=== PATIENT | female | born 1940 | race Caucasian/White ===

== ENCOUNTER 2021-04-08 18:05 | Emergency (ER) | payer MEDICARE, SELFPAY ==
--- NOTE | 2021-04-08 18:10 | ED.FEMALEGU ---
HPI - Female Genitourinary General Chief complaint: Urogenital-Female Stated complaint: Dizziness, Shaking, frequent urinating Time Seen by Provider: 04/08/21 18:08 Source: patient and RN notes reviewed History of Present Illness HPI Narrative: Patient is an 80-year-old female who presents the urgent care with complaints of frequent urination, burning with urination, urgency, dizziness and shakiness . Patient states that her symptoms of the urinary issues started approximately a week and a half ago and the last 2 to 3 days she has been shaky and dizzy . Patient states she does have a history of vertigo and has not taken anything for her symptoms. Patient also reports of some nausea without abdominal pain, vomiting or diarrhea. Patient denies of any recent falls. States that she has been eating and drinking normally. No other acute complaints. No acute distress noted. Patient aware of the plan of care. Some parts of this dictation were generated by voice recognition software and may contain typographical and/or grammatical inaccuracies. Related Data Home Medications Medication Instructions Recorded Confirmed acetazolamide 500 mg PO BID 04/08/21 04/08/21 alprazolam 0.5 mg PO BID PRN 04/08/21 04/08/21 atorvastatin 20 mg PO DAILY 04/08/21 04/08/21 brimonidine 1 drp RIGHT EYE BID 04/08/21 04/08/21 diltiazem HCl 240 mg PO DAILY 04/08/21 04/08/21 dorzolamide 1 drp RIGHT EYE BID 04/08/21 04/08/21 ergocalciferol (vitamin D2) 1,250 mcg PO MONTHLY 04/08/21 04/08/21 famotidine 20 mg PO DAILY 04/08/21 04/08/21 fluoxetine 10 mg PO DAILY 04/08/21 04/08/21 hydrocodone-acetaminophen 1 tablet PO Q6H PRN 04/08/21 04/08/21 latanoprost 1 drp EACH EYE HS 04/08/21 04/08/21 levothyroxine 88 mcg PO DAILY 04/08/21 04/08/21 lisinopril 40 mg PO DAILY 04/08/21 04/08/21 Allergies Allergy/AdvReac Type Severity Reaction Status Date / Time No Known Allergies Allergy Verified 04/08/21 18:47 Review of Systems Review of Systems: CONSTITUTIONAL: Denies fever, chills, or sweats. EYES: Denies visual changes, redness, or discharge. ENT: Denies rhinorrhea, congestion, sore throat, or otalgia. CARDIOVASCULAR: Denies chest pain, palpitations, or edema. RESPIRATORY: Denies cough or dyspnea. GASTROINTESTINAL: Denies abdominal pain, nausea, vomiting, or diarrhea. GENITOURINARY: Reports of dysuria, urgency or frequency SKIN: Denies rash or itching. MUSCULOSKELETAL: Denies back pain, joint pain, or myalgia. NEUROLOGIC: Denies headache, numbness, or weakness. Reports of dizziness All other systems reviewed are negative, except as documented in HPI. [facility] Social History Social History Smoking status: Never smoker Alcohol intake: never Comments At the time of my signature, I reviewed and agree with the nursing past medical, surgical, social, and family history. There is no relevant family history pertinent to the patient complaint. Exam Narrative: GENERAL: This is a well-nourished, well-developed patient, in no apparent distress. HEAD: normocephalic, atraumatic. EYES: PERRL. Sclera clear/white. Vision is grossly intact. EARS: External ears normal, auditory canals clear and without drainage, TMs normal without perforation. Hearing grossly intact. NOSE: External nose normal with no obvious nasal discharge, nares without redness, no rhinorrhea. THROAT: Mucous membranes moist, posterior pharynx clear. NECK: Neck supple, non-tender without lymphadenopathy, masses or thyromegaly. CARDIOVASCULAR: Regular rate and rhythm- paced RESPIRATORY: Clear to auscultation. Breath sounds equal bilaterally. No wheezes, rales, or rhonchi. GASTROINTESTINAL: Abdomen soft, non-tender, nondistended. Bowel sounds are active. SKIN: warm, intact with no suspicious lesions or rash, good texture and turgor. NEURO: awake, alert, and oriented to person, place and time. There were no obvious focal neurologic abnormalities. EXTREMITIES: No clubbing, cyanosis, or edema. Course Vital
[2021-04-08 18:21] VITALS: BP 163/70; PULSE 60; RESP 16; TEMP 37.1; O2SAT 97
[2021-04-08 18:39] LABS: Glucose Point of Care 99 mg/dl (65-105)
== END 2021-04-08 18:51 | disposition left against medical advice (07) ==
PROVIDERS: Emergency Provider Nurse Practitioner Family; PCP Hospitalist
DX: N39.0 Urinary tract infection, site not specified (principal)
CPT/HCPCS: 81003; 82948; 87086; 87088; 99213; G0463

== ENCOUNTER 2022-05-19 12:30 | Emergency (ER) | payer MEDICARE, SELFPAY ==
--- NOTE | ~2022-05-19 | XR_ITS ---
EXAMINATION: XR tibia fibula LT 2V DATE: 05/19/2022 13:19 INDICATION: Severe left leg pain post fall TECHNIQUE: Anteroposterior and lateral views of the left tibia and fibula were obtained. COMPARISON: Left knee radiographs dated 05/19/2017 FINDINGS: Left total knee arthroplasty without patellar resurfacing which appears well seated in near-anatomic alignment. No periprosthetic lucency to suggest loosening or infection. There appears be some seconda ry remodeling of the patella suggesting extensive patellar high-grade chondromalacia. No fracture. Mo derate osteoarthritis at the tarsal metatarsal joints and mild osteoarthritis at the left ankle and a few additional joints in the mid and hindfoot. Moderate-sized plantar calcaneal spur. Soft tissues a re unremarkable. No left knee joint effusion. IMPRESSION: 1. No acute osseous abnormality. 2. Left total knee arthroplasty without patellar resurfacing with suggestion of high-grade patellar c hondromalacia with remodeling of the patella. Reviewed, dictated and finalized at location A. IMPRESSION: 1. No acute osseous abnormality. 2. Left total knee arthroplasty without patellar resurfacing with suggestion of high-grade patellar chondromalacia with remodeling of the patella.
--- NOTE | ~2022-05-19 | XR_ITS ---
EXAMINATION: XR wrist LT min 3V DATE: 05/19/2022 13:19 INDICATION: Left wrist pain post fall TECHNIQUE: Posteroanterior, ulnar deviation, oblique, and lateral views of the left wrist were obtain ed. COMPARISON: none FINDINGS: Oblique fracture at the distal metadiaphysis of the left ulna with 2-3 mm ulnar displacement and mild volar angulation. No other fractures identified. Polyarticular osteoarthritis, severe at the triscap he, first carpometacarpal, first metacarpophalangeal and first interphalangeal joints. Moderate osteo arthritis at the wrist, second and third metacarpophalangeal and fifth proximal interphalangeal joint s and mild at the midcarpal and remaining metacarpophalangeal and visualized interphalangeal joints. Chronic calcinosis in the region of the triangular fibrocartilage complex. Soft tissue swelling along the ulnar side of the mid to distal forearm. IMPRESSION: 1. Mild ulnar displacement and angulation of an oblique mid diaphyseal fracture of the distal left ul na. 2. Moderate to severe polyarticular osteoarthritis at the left wrist and hand. Reviewed, dictated and finalized at location A. IMPRESSION: 1. Mild ulnar displacement and angulation of an oblique mid diaphyseal fracture of the distal left ulna. 2. Moderate to severe polyarticular osteoarthritis at the left wrist and hand.
[2022-05-19 12:34] VITALS: BP 120/63; PULSE 61; RESP 16; TEMP 37; O2SAT 97
--- NOTE | 2022-05-19 13:02 | ED.GENADULT ---
HPI - General Adult General Chief complaint: Extremity Injury, Lower Stated complaint: Left Wrist Injury Source: patient Mode of arrival: ambulatory Limitations: no limitations History of Present Illness HPI narrative: Patient presents for evaluation of left wrist pain. She indicates she sustained a fall 3 days ago. She was with her son and was attempting to sit on a rocker at the time of the fall. Apparently her son accidentally bumped the rocker causing it to spin, resulting in patient missing the chair. She did not hit her head. No LOC. She is anticoagulated with eliquis for atrial fibrillation. She reports pain in her left wrist since the time of the fall. She rates her pain 10/10 in severity. Pain is worse with movement. She is right hand dominant. She also has some bruising to posterior aspect of left lower leg. She has been using a cane to ambulate. Baseline status is ambulatory without assistive device. Related Data Home Medications Medication Instructions Recorded Confirmed acetazolamide 500 mg 500 mg PO BID 04/08/21 05/19/22 capsule,extended release alprazolam 0.5 mg tablet 0.5 mg PO BID PRN Anxiety 04/08/21 05/19/22 atorvastatin 20 mg tablet 20 mg PO DAILY 04/08/21 05/19/22 brimonidine 0.2 % eye drops 1 drp RIGHT EYE BID 04/08/21 05/19/22 diltiazem HCl 240 mg 240 mg PO DAILY 04/08/21 05/19/22 capsule,extended release 24 hr dorzolamide 2 % eye drops 1 drp RIGHT EYE BID 04/08/21 05/19/22 ergocalciferol (vitamin D2) 1,250 1,250 mcg PO MONTHLY 04/08/21 05/19/22 mcg (50,000 unit) capsule famotidine 20 mg tablet 20 mg PO DAILY 04/08/21 05/19/22 fluoxetine 10 mg capsule 10 mg PO DAILY 04/08/21 05/19/22 hydrocodone 7.5 mg-acetaminophen 1 tablet PO Q6H PRN Pain 04/08/21 05/19/22 325 mg tablet latanoprost 0.005 % eye drops 1 drp EACH EYE HS 04/08/21 05/19/22 levothyroxine 88 mcg tablet 88 mcg PO DAILY 04/08/21 05/19/22 lisinopril 40 mg tablet 40 mg PO DAILY 04/08/21 05/19/22 Allergies Allergy/AdvReac Type Severity Reaction Status Date / Time No Known Allergies Allergy Verified 05/19/22 12:49 Review of Systems Review of Systems: CONSTITUTIONAL: Denies fever, chills, or sweats. EYES: Denies visual changes, redness, or discharge. ENT: Denies rhinorrhea, congestion, sore throat, or otalgia. CARDIOVASCULAR: Denies chest pain, palpitations, or edema. RESPIRATORY: Denies cough or dyspnea. GASTROINTESTINAL: Denies abdominal pain, nausea, vomiting, or diarrhea. GENITOURINARY: Denies dysuria or hematuria. SKIN: Reports bruising to posterior aspect of left lower leg. Denies rash or itching. MUSCULOSKELETAL: Reports left wrist pain NEUROLOGIC: Denies headache, numbness, dizziness, or weakness. PSYCHIATRIC: Denies anxiety or depression. [facility] Past Medical History Medical History (Updated 05/19/22 @ 14:15 by RAHEEL BassP, ) Atrial fibrillation Hypertension Hypothyroidism Surgical History Surgical History History of left knee replacement History of right knee joint replacement Family History Family History Mother Family history non-contributory Social History Social History Smoking status: Never smoker Alcohol intake: never Substance use: never Living arrangements: alone Gender identity (if verbalized by the patient): Female Spiritual care concerns: No Exam Narrative: GENERAL: Well-appearing, well-nourished, and in no acute distress. HEAD: Normocephalic, atraumatic. EYES: PERRLA and EOMI. ENT: Nares clear, no rhinorrhea or epistaxis. Mucous membranes moist. Oropharynx without tonsillar hypertrophy exudate or other lesions. Bilateral TMs pearly artis nonbulging NECK: Supple. No adenopathy or masses. No carotid bruits or JVD CHEST: Clear to auscultation. No respiratory distress. No wheezes ra
== END 2022-05-19 14:35 | disposition home or self-care (01) ==
PROVIDERS: Emergency Provider Nurse Practitioner; PCP Hospitalist
DX: S52.602A Unspecified fracture of lower end of left ulna, initial encounter for closed fracture (principal); W19.XXXA Unspecified fall, initial encounter; I48.91 Unspecified atrial fibrillation; Z79.01 Long term (current) use of anticoagulants; I10 Essential (primary) hypertension; E03.9 Hypothyroidism, unspecified; Z96.653 Presence of artificial knee joint, bilateral
CPT/HCPCS: 29125; 73110; 73590; 99214; A4565; G0463

== ENCOUNTER 2024-07-07 10:57 | Outpatient (CLI) | payer MEDICARE, SELFPAY | END 2024-07-07 10:58 | disposition home or self-care (01) | LOC: ANHBWCAUD 10:58 | PROVIDERS: PCP Hospitalist; Visit Provider Otolaryngology | DX: H90.2 Conductive hearing loss, unspecified (principal); H74.02 Tympanosclerosis, left ear | CPT/HCPCS: 92557; 92567 ==

== ENCOUNTER 2025-06-25 15:41 | Emergency (ER) | payer MEDICARE, SELFPAY ==
--- NOTE | ~2025-06-25 | XR_ITS ---
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 Findings: No acute fracture or malalignment. No significant degenerative changes. Soft tissues unremarkable. Impression: No acute fracture or malalignment. Reviewed, dictated and finalized at location P. MOBILE MECHANIC RADIATOR Impression: No acute fracture or malalignment.
--- OUTSIDE RECORDS SUMMARY | 2025-06-25 15:43 | XMS_ITS | Clinical Summary ---
Author Organization [facility] Address [address] [place] [address] Phone Care Team Providers Care Production Aide Name Role Phone Jose Leon MD Primary Care Provider [phone] Allergies Active Allergy Reactions Criticality Noted Date Comments Atorvastatin Other (see Comments) Low 06/19/2020 Reaction: muscle pain Codeine Unknown Dorzolamide Hcl-Timolol Mal Other (see Comments) Low 07/15/2024 Gabapentin Other (see Comments) Medium 10/25/2022 Patient does not remember but will not take it again Atorvastatin Calcium Other (see Comments) Reaction: muscle pain Oxycodone Other (see Comments) Low 10/25/2023 Lethargy, low blood pressure. Tolerated hydrocodone without issue. Pravastatin Other (see Comments) Low 06/19/2020 Reaction: muscle pain Reaction: muscle pain Prednisone Other (see Comments) Medium 04/18/2022 Simvastatin Other (see Comments) Low 06/19/2020 Reaction: muscle pain Reaction: muscle pain Medications Eliquis 5 MG Tablet TAKE ONE TABLET BY MOUTH TWO TIMES A DAY 60 Tab 5 06/16/20 20 Active lisinopril (PRINIVIL, ZESTRIL) 20 MG Tablet TAKE ONE TABLET BY MOUTH TWO TIMES A DAY 180 Tab 07/04/20 20 Active ergocalciferol (VITAMIN D) 73768 UNIT Capsule 1 CAPSULE BY MOUTH ONCE A MONTH 1 Cap 1 08/17/19 21 Active hydrALAZINE 25 MG Tablet TAKE 1 TAB BY MOUTH 2 TIMES DAILY. 60 Tab 2 08/29/19 21 Active levothyroxine (SYNTHROID) 75 MCG Tablet TAKE ONE TABLET BY MOUTH DAILY 90 Tab 1 08/29/19 21 Active ALPRAZolam (XANAX) 0.5 MG Tablet TAKE 1 TAB BY MOUTH 2 TIMES DAILY NEEDED FOR ANXIETY. 60 Tab 09/05/19 21 Active Additional Information Patient not taking.Reported on 10/03/2022 meclizine (ANTIVERT) 25 MG Tablet Take 25 mg by mouth 3 times daily as needed for Dizziness. 09/26/19 23 Active naloxone HCl (Narcan) 4 MG/0.1ML Liquid 1 [place] by Nasal route as needed (opioid overdose). administer for symptoms of overdose (severe sleepiness, breathing problems, not responsive). Call 911. May use additional dose to repeat 1 spray intranasally in 2-3 minutes if needed. 2 Each 10/04/19 23 Active HYDROcodone-acetam inophen (NORCO) 7.5-325 MG TabletIndications: Spinal stenosis, unspecified spinal region TAKE ONE (1) TABLET BY MOUTH EVERY 8 HOURS NEEDED FOR MODERATE OR MORE SEVERE PAIN. 90 Tablet 11/05/19 23 Active levothyroxine (SYNTHROID) 100 MCG TabletIndications: Other specified hypothyroidism TAKE 1 TABLET BY MOUTH DAILY. 90 Tablet 3 02/09/20 24 Active dilTIAZem (DILACOR XR) 240 MG CAPSULE SR 24 HR Take 240 mg by mouth daily. Active DULoxetine (CYMBALTA) [address] Particles Take 20 mg by mouth 2 times daily. Active famotidine (PEPCID) 20 MG Tablet Take 20 mg by mouth every evening. Active HYDROcodone-acetam inophen (NORCO) 10-325 MG Tablet Take 1 Tablet by mouth every 6 hours as needed for Mild or more severe pain. Active latanoprost (XALATAN) 0.005 % Solution Place 1 Drop in left eye nightly. Active levothyroxine (SYNTHROID) 125 MCG Tablet Take 125 mcg by mouth daily. Active linaclotide (Linzess) 145 MCG Capsule Take 145 mcg by mouth every morning (before breakfast). Active lisinopril (PRINIVIL, ZESTRIL) 20 MG Tablet Take 20 mg by mouth daily. 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 Active ezetimibe (ZETIA) 10 MG Tablet Take 10 mg by mouth daily. Active propranolol (INDERAL) 20 MG Tablet Take 20 mg by mouth 2 times daily. Active Active Problems Problem Noted Date Diagnosed Date Spinal stenosis 10/03/2022 Overview (10/03/2022): Has seen pain mgment Essential hypertension, benign 05/04/2020 Paroxysmal atrial fibrillation 05/04/2020 Overview (10/03/2022): Chohaun pacemaker Other specified hypothyroidism 05/04/2020 Generalized anxiety disorder 05/04/2020 Generalized osteoarthritis 05/04/2020 Primary osteoarthritis of left knee 09/17/2018 Hyperlipidemia 12/11/2010 Diverticulosis large intesti ne w/o perforation or abscess w/o bleeding 12/11/2010 Encounters Date Type Department Care Team Description 05/04/2025 10:00 AM CDT Home Care Visit [address] [address] Lillian Diaz, PT PT - OASIS DISCHARGE 05/03/2025 Telephone [facility] [address] [place] [address] dAam Cortez MD 05/02/2025 4:00 PM CDT Home Care Visit [address] [address] Mariana Godwin, SERVER PT - HOME VISIT 05/02/2025 Telephone [facility] [address] [place] [address] Adam Cortez MD 05/02/2025 Travel 04/28/2025 1:15 PM CDT Home Care Visit [address] [address] Monique Caruso, OT OT - DISCIPLINE DISCHARGE 04/27/2025 10:30 AM CDT Home Care Visit [address] [address] Mariana Godwin, SERVER PT - HOME VISIT 04/27/2025 Home Care Visit [address] [address] Emma Carpenter, LES CASE COMMUNICATION 04/27/2025 Travel 04/26/2025 11:00 AM CDT Home Care Visit [address] [address] Emma Carpenter, LES OT - HOME VISIT 04/25/2025 12:30 PM CDT Home Care Visit [address] [address] Mariana Godwin, SERVER PT - HOME VISIT 04/25/2025 Travel 04/21/2025 11:30 AM CDT Home Care Visit [address] [address] Mariana Godwin, SERVER PT - HOME VISIT 04/21/2025 11:00 AM CDT Home Care Visit [address] [address] Emma Carpenter, LES OT - HOME VISIT 04/21/2025 Travel 04/19/2025 12:30 PM CDT Home Care Visit [address] [address] Emma Carpenter, LES OT - HOME VISIT 04/19/2025 10:00 AM CDT Home Care Visit [address] [address] Samaria Jesus, PT PT - SERVER SUPERVISORY VISIT 04/19/2025 Travel 04/14/2025 11:00 AM CDT Home Care Visit [address] [address] Emma Carpenter OTA OT - HOME VISIT 04/13/2025 11:30 AM CDT Home Care Visit [address] [address] Mariana Godwin, SERVER PT - HOME VISIT 04/13/2025 Travel 04/11/2025 1:30 PM CDT Home Care Visit [address] [address] Monique Caruso OT OT - INITIAL EVALUATION 04/11/2025 12:00 PM CDT Home Care Visit [address] [address] Mariana Godwin, SERVER PT - HOME VISIT 04/11/2025 Travel 04/08/2025 Home Care Visit [address] [address] Lillian Diaz, PT CARE CONFERENCE 04/07/2025 9:30 AM CDT Home Care Visit [address] [address] Lillian Diaz, PT PT - [place] START OF CARE 04/07/[address] [address] Lillian Diaz, PT Medication Management 04/07/2025 Plan of Care Documentation [address] [address] from Last 3 Months Immunizations Immunization Administration Dates Next Due Pneumococcal Vaccine Adult - 23 Valent 2 TDAP Vaccine 09/25/2023 Family History Medical History Relation Name Comments Heart Attack Father Stroke Mother No Known Problems Sister Relation Name Status Comments Father Mother Sister Alive Social History Tobacco Use Types Packs/Day Years Used Date Smoking Tobacco: Never Smokeless Tobacco: Never Tobacco Cessation:Counseling Given: No Alcohol Use Standard Drinks/Week Comments Never 0 (1 standard drink = 0.6 oz pur e alcohol) PHQ-2 Answer Date Recorded Total Score - Questions 1-9 1 09/2022 AUDIT-C Answer Date Recorded Q1: How often do you have a drink containing alcohol? Never 05/03/2025 Q2: How many drinks containi ng alcohol do you have on a typical day when you are drinking? Patient does not drink Q3: How often do you have si x or more drinks on one occasion? Never 05/03/2025 Sexually Active Control Partners Comments Not Currently Comments No Sex and Gender Information Value Date Recorded Sex Assigned at Not on file Legal Sex Female 8:03 PM CDT Gender Identity Not on file Sexual Orientation Not on file Last Filed Vital Signs Vital Sign Reading Time Taken Comments Blood Pressure 124/72 05/04/2025 10:20 AM CDT Pulse 72 05/04/2025 10:20 AM CDT Temperature 36.1 C (96.9 F) 05/04/2025 10:20 AM CDT Respiratory Rate 16 05/04/2025 10:20 AM CDT Oxygen Saturation 94% 05/04/2025 10:20 AM CDT Inhaled Oxygen Concentration - - Weight 54.4 kg (120 lb) 04/07/2025 9:42 AM CDT Height 152.4 cm (5') 04/07/2025 9:42 AM CDT Body Mass Index 23.44 04/07/2025 9:42 AM CDT Plan of Treatment Health Maintenance Due Date Last Done Comments Hepatitis C Virus (HCV) Screening 1940 Varicella Immunization (1 of 2 - 13+ 2-dose series) 1953 Zoster Immunization (1 of 2) 1990 Medicare Initial AWV G0438 11/02/2000 Pneumococcal Immunization (5 0+ years) (2 of 2 - PCV) 12/10/2012 12/11/2011 Respiratory Syncytial Virus (RSV) Immunization (Adult) (1 - 1-dose 75+ series) 2015 DEXA Bone Density 12/10/2024 12/10/2022, 09/22/2020 Influenza Immunization (#1) 2025 SARS-COV-2 Immunization ( - season) 2025 Pneumococcal Immunization Combined Discontinued 12/11/2011 DTaP/Tdap/Td Immunization Discontinued 09/25/2023 TdaP Immunization Discontinued 09/25/2023 Hepatitis B Immunization Aged Out No longer eligible based on patient's age to complete this topic Human Papillomavirus (HPV) Immunization Aged Out No longer eligible based on patient's age to complete this topic Meningococcal Immunization (ACWY) Aged Out No longer eligible based on patient's age to complete this topic Rotavirus Immunization Aged Out No lo nger eligible based on patient's age to complete this topic Medical Devices Implanted Type Area Account Review Specialist Device Identifier Shelf Expiration Date Model / Serial / Lot Cement Bone Orthoset 1 40gm - [id number] Implanted:Qty : 2 on 09/17/2018 by James Steele MD at [facility] IMPLANT Left: Knee [employer] 10/01/2020 [id number] / [id number] / [id number] Component Patellar High Dome 9mm 28mm Recessed Advance All Poly - [id number] Implanted:Qty : 1 on 09/17/2018 by James Steele MD at [facility] IMPLANT Left: Knee [employer] 06/13/2025 [id number] / [id number] / [id number] Insert Evolution Mp Fem Cs/Cr Porous - [id number] Implanted:Qty : 1 on 09/17/2018 by James Steele MD at [facility] IMPLANT Left: Knee [employer] 05/19/2026 [id number] / [id number] / [id number] Insert Evolution Mp Tib Keeled Nonpor Size 4 Standard Left - [id number] Implanted:Qty : 1 on 09/17/2018 by James Steele MD at [facility] IMPLANT Left: Knee [employer] 03/16/2026 [id number] / [id number] / [id number] Evolution Mp Cs 4 Plus Left Implanted:Qty : 1 on 09/17/2018 by James Steele MD at [facility] Left: Knee [employer] 01/09/2026 [id number] / [id number] / [id number] Insurance [place] Advance Directives Documents on File Type Date Recorded Patient Track Grinder Expl anation Power of Architectural Sales Consultant for Health Care 09/21/2018 8:46 AM POA-HC * Full Code (Latest Code Status on File) Date Activated Date Inactivated Comments 04/07/2025 11:04 PM * Full Code Date Activated Date Inactivated Comments 09/17/2018 3:20 PM 09/19/2018 4:35 PM CPR-Full Faraz atment: FULL ARREST: Attempt Resuscitation/CPR wit intubation and mechanical ventilation. PRE-ARREST: Use entire range of life support measures to stabilize the patient. Care Teams Production Aide Relationship Specialty Start Date End Date Jose Leon MD [address] [place] [address] PCP - General Family Medicine 04/05/25
--- OUTSIDE RECORDS SUMMARY | 2025-06-25 15:43 | XMS_ITS | Encounter Summary ---
Author Organization [facility] Address [address] [place] [address] Phone Care Team Providers Care Filter Operator Name Role Phone Logan Jay MD Primary Care Provider Jose Leon MD Primary Care Provider [phone] Noreen Youssef [facility] Primary Care Pro vider Logan aJy MD Primary Care Provider [phone] Jose Leon MD Primary Care Provider [phone] Reason for Visit * Reason Comments Medication Refill Encounter Details Date Type Department Care Team (Late st Contact Info) Description 07/25/[address] [facility] - Internal Medicine - [place] [address] [place] [address] Logan Jay MD [address] [place] [address] Medication Refill Social History Tobacco Use Types Packs/Day Years Used Date Smoking Tobacco: Never Smokeless Tobacco: Never Alcohol Use Standard Drinks/Week Comments No 0 (1 standard drink = 0.6 oz pur e alcohol) PHQ-2 Answer Date Recorded Total Score - Questions 1-9 0 11/2019 Comments No Sex and Gender Information Value Date Recorded Sex Assigned at Not on file Legal Sex Female 8:03 PM CDT Gender Identity Not on file Sexual Orientation Not on file COVID-19 Exposure Response Date Recorded In the last month, have you been in contact with someone who was confirmed or suspected to have Coronavirus / COVID-19? No / Unsure 07/21/2020 1:48 PM TIME SIGNAL WIRER documented as of this encounter Miscellaneous Notes * Telephone Encounter - Odilia Dey RN - 07/25/2020 9:09 AM CST Please review and sign. SIGNAL WIRER documented in this encounter Plan of Treatment Not on file documented as of this encounter Visit Diagnoses Not on filedocumented in this encounter Additional Health Concerns Assessment Noted Time PHQ-9 Depression Total Score: 0 07/07/20 20 1:00 PM TIME SIGNAL WIRER documented as of this encounter Care Teams Filter Operator Relationship Specialty Start Date End Date Logan Jay MD PCP - General Internal Medicine 11/18/17 07/07/21 Jose Leon MD [address] [place] [address] PCP - General Family Medicine 07/08/21 10/02/22 Noreen Youssef PAC [address] [place] [address] PCP - General Physician Home Economist 10/03/22 10/06/22 Logan Jay MD PCP - General Internal Medicine 10/07/22 04/04/25 Jose Leon MD [address] [place] [address] PCP - General Family Medicine 04/05/25 documented as of this encounter
--- OUTSIDE RECORDS SUMMARY | 2025-06-25 15:43 | XMS_ITS | Data Portability ---
Author Organization [facility] Address [address] [place] [address] Assessment No assessment recorded. Plan of Treatment Reminders Order Date Submit Date Provider Last Modified By Organization Details Last Modified Time Details Appointments None recorded. Lab None recorded. 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 Surgeries None recorded. Imaging None recorded. Medication Orders None recorded. Patient TargetsNo targets recorded. Patient InstructionsNo instructions recorded. 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 Allergies Allergen ID Allergen Name Allergen Category Reaction Reaction Severity Criticality Documentation Date Start Date Code Code System Note Provider Name and Address Organization Details Recorded Time 562287 prednison e medicatio n Not available Not available Not available 06/29/2024 8640 RxNorm NYA Chacon, [facility] 4 14:13:22 508515 oxycodone medicatio n Not available Not available Not available 06/29/2024 7804 RxNorm NYA Chacon, [facility] 4 14:13:41 630444 pravastat in medicatio n Not available Not available Not available 06/29/2024 97600 RxNorm NYA Chacon, [facility] 4 14:13:50 260520 simvastat in medicatio n Not available Not available Not available 06/29/2024 67892 RxNorm Niya Romero MA null, [place] 4 14:13:58 Medications Name Sig Start Date Stop Date Status Note LastModified by Organization Details LastModified Time latanoprost 0.005 % eye drops active Not Available Not Available Not Available azithromycin 250 mg tablet TAKE 2 TABLETS BY MOUTH TODAY, THEN TAKE 1 TABLET DAILY FOR 4 DAYS DIRECTED active Not Available Not Available No t Available ondansetron HCl 8 mg tablet active Not Available Not Available Not Available diltiazem CD 240 mg capsule,extend ed release 24 hr active Not Available Not Available Not Available lisinopril 20 mg tablet active Not Available Not Available No t Available ondansetron HCl 4 mg tablet active Not Available Not Available Not Available hydralazine 25 mg tablet active Not Available Not Available No t Available hydrocodone 10 mg-acetaminoph en 325 mg tablet active Not Available Not Available Not Available ciclopirox 8 % topical solution active Not Available Not Available Not Available levothyroxine 100 mcg tablet active Not Available Not Availab le Not Available famotidine 20 mg tablet active Not Available Not Available No t Available meclizine 25 mg tablet active Not Available Not Available No t Available cephalexin 500 mg capsule active Not Available Not Available N ot Available dorzolamide 22.3 mg-timolol 6.8 mg/mL eye drops active Not Available Not Available Not Available mirtazapine 15 mg tablet active Not Available Not Available No t Available propranolol 20 mg tablet active Not Available Not Available No t Available atropine 1 % eye drops active Not Available Not Available No t Available cefdinir 300 mg capsule TAKE 1 CAPSULE (300 MG TOTAL) BY MOUTH DAILY FOR 7 DAYS active Not Available Not Available No t Available ezetimibe 10 mg tablet active Not Available Not Available No t Available Alphagan P 0.1 % eye drops active Not Available Not Available Not Available Eliquis 5 mg tablet active Not Available Not Available Not Available Vitals Date Recorded Body height Body mass index (BMI) Body weight Heart rate Respiratory rate Body temperature Systolic And Diastolic Provider Name and Address Organization Details Last Updated DateTime 4 154.94 cm 23.2 kg/m2 00568.7 8 g 69 /min 16 /min 96.9 [degF] 143/80 mm[Hg] Niya Romero [place] - [facility] 14:12:26 Social History Question Answer Notes LastModified by Organizat ion Details LastModified Time Tobacco Smoking Status Never Smoker Niya Romero MA null, [place] [facility] 06/29/2024 14:15:18 What Was The Date Of Your Most Recent Tobacco Screening? 06/29/2024 Information not available 06/29/2024 Do You Have Any Pets? Yes Information not available 06/29/2024 Sex: Unknown Functional Status Question Answer Note LastModified by Organization D etails LastModified Time Do you or have you ever used any other forms of tobacco or nicotine? No Information not available 06/29/2024 Mental Status None recorded. Family History Nothing Reported. Medical History No medical history recorded. Gynecological HistoryNo gynecological history recorded. Obstetrics History GPAL:G 0 P 0 0 0 0 Past Encounters Encounter ID Performer Location Encounter Start Date Encounter Closed Date Diagnosis/Indication Diagnosis SNOMED-CT Code Diagnosis ICD10 Code Diagnosis IMO Codes Diagnosis [id number] [facility] [address] [place] [address] 06/29/2024 13:55:54 06/30/2024 13:51:05 Asymmetrical sensorineural hearing loss 761695019 H90.5 follow back after audio Health Concerns Section Related Observation LastModified by Organization Detai ls LastModified Time None Recorded Concern Status LastModified by Organization Details LastModified Time None Recorded Advance Directives Directive None Recorded Payers Insurance Date Sequence Insurance Name Policy Number Policy Castanon Covered Member ID Castanon Member ID Guarantor Name 11/06/2024 [place] [facility] - [facility] [place] [id number] Yessica [place] 11/06/2024 1 [facility] (MEDICARE REPLACEMENT/A DVANTAGE - PPO) [id number] Yessica J [place] [id number] 3- [place] 08/30/2024 3 [place] [facility] [place] [id number] Yessica [place] 08/30/2024 2 [place] Y[place] [id number] Yessica [place]enny 04/26/2024 1 [facility] Yessica [place] [id number] [place] Notes Date Note Type Note Provider Name and Address Organization Details Recorded Time 06/29/2024 text/html ROS as noted in the HPI Pt complaining of decreased hearing in her left ear with roaring noise in it. Several months ago she fell and hit her head and was in the hospital with a bleed Mehul Winter MD Attn: Accounting[address] [place], [address], [facility] [place] 06/29/2024 14:26:32 OBGyn Episode No OBEpisode recorded.
--- OUTSIDE RECORDS SUMMARY | 2025-06-25 15:43 | XMS_ITS | Encounter Summary ---
Author Organization [facility] Address [address] [place] [address] Phone Care Team Providers Care Optoelectronics Engineer Name Role Phone Logan Jay MD Primary Care Provider [phone] Jose Leon MD Primary Care Provider [phone] Noreen Youssef [facility] Primary Care Pro vider Logan Jay MD Primary Care Provider [phone] Jose Leon MD Primary Care Provider [phone] Reason for Visit * Reason Comments Medication Refill Encounter Details Date Type Department Care Team (Late st Contact Info) Description 09/25/2020 Refill [facility] Medical Group - Internal Medicine - [place] [address] [place] [address] Logan Jay MD [address] [place] [address] Medication Refill Social History Tobacco [...] on file Sexual Orientation Not on file documented as of this encounter Miscellaneous Notes * Telephone Encounter - Odilia Dey RN - 09/25/2020 8:59 AM CST Please review and sign. PACKAGER documented in this encounter Plan of Treatment Not on file documented as of this encounter Visit Diagnoses Not on filedocumented in this encounter Additional Health Concerns Assessment Noted Time PHQ-9 Depression Total Score: 0 07/07/20 20 1:00 PM MEAT PACKAGER documented as of this encounter Care Teams Optoelectronics Engineer Relationship Specialty Start Date End Date Logan Jay MD PCP - General Internal Medicine 11/18/17 07/07/21 Jose Leon MD [address] [place] [address] PCP - General Family Medicine 07/08/21 10/02/22 Noreen Youssef PAC [address] [place] [address] PCP - General Physician Malt House Operator 10/03/22 10/06/22 Logan Jay MD PCP - General Internal Medicine 10/07/22 04/04/25 Jose Leon MD [address] [place] [address] PCP - General Family Medicine 04/05/25 documented as of this encounter
--- OUTSIDE RECORDS SUMMARY | 2025-06-25 15:43 | XMS_ITS | Clinical Summary ---
Author Organization [facility] Address [address] [place] [address] Phone Care Team Providers Care Inbound Sales Manager Name Role Phone Unavailable Primary Care Provider Unavailabl e Encounters Date Type Department Care Team Description 06/01/2025 External Device Data STL ABSTRACTION Provider, Abstract 06/01/2025 External Device Data STL ABSTRACTION Provider, Abstract 05/24/2025 External Device Data STL ABSTRACTION Provider, Abstract 04/05/2025 External Device Data STL ABSTRACTION Provider, Abstract from Last 3 Months Social History Tobacco Use Types Packs/Day Years Used Date Smoking Tobacco: Never Assessed Comments Unknown Sex and Gender Information Value Date Recorded Sex Assigned at Not on file 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
--- OUTSIDE RECORDS SUMMARY | 2025-06-25 15:43 | XMS_ITS | Clinical Summary ---
Author Organization [facility] Address [address] [place] [address] Care Team Providers Care Welding Pantograph Operator Name Role Phone Unavailable Primary Care Provider Unavailabl e Source Comments [facility] [email or web address],non-owned Affiliates and Associated Physician Practices is amultiple site organization consisting of ambulatory clinics and hospital sitesin [place], [place], [place] and [place]. This disclosure is being madepursuant to the Care Everywhere program and may not contain all information available regarding this patient. 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 Gender Identity Not on file Sexual Orientation Not on file Plan of Treatment Health Maintenance Due Date Last Done Comments BONE DENSITY TESTING 1940 MEDICARE AWV 12 MONTHS 1940 DTAP/TDAP/TD VACCINES (1 - Tdap) 1959 PNEUMOCOCCAL VACCINE 50+ (1 of 1 - PCV) 1990 ZOSTER VACCINE (1 of 2) 1990 Respiratory Syncytial Virus (RSV) Vaccine Pt: or over 60 yrs (1 - 1-dose 75+ series) 2015 DEPRESSION SCREENING 08/04/2024 COVID-19 VACCINE ( - 2024-2 6 season) 2025 INFLUENZA VACCINE (#1) 2025 HEPATITIS B VACCINE Aged Out No longe r eligible based on patient's age to complete this topic HIB VACCINE Aged Out No longer eligi ble based on patient's age to complete this topic HPV VACCINE Aged Out No longer eligi ble based on patient's age to complete this topic MENINGOCOCCAL (Group B) VACC INE SHARED DECISION-MAKING Aged Out No longer eligibl e based on patient's age to complete this topic MENINGOCOCCAL GROUPS A/C/Y/W VACCINE Aged Out No longer eligible b ased on patient's age to complete this topic Insurance MEDICARE
--- OUTSIDE RECORDS SUMMARY | 2025-06-25 15:43 | XMS_ITS | Encounter Summary ---
Author Organization [facility] Address [address] [place] [address] Phone Care Team Providers Care Quantitative Strategy Analyst Name Role Phone Jose Leon MD Primary Care Provider [phone] Reason for Visit * Reason Onset Date Comments Medication Management 04/07/2025 Encounter Details Date Type Department Care Team (Late st Contact Info) Description 04/07/2025 Telephone [facility] [address] [place] [address] Lillian Diaz, PT Medication Management Social History Tobacco Use Types Packs/Day Years Used Date Smoking Tobacco: Never Smokeless Tobacco: Never Alcohol Use Standard Drinks/Week Comments No 0 (1 standard drink = 0.6 oz pur e alcohol) PHQ-2 Answer Date Recorded Total Score - Questions 1-9 1 09/2022 Comments No Sex and Gender Information Value Date Recorded Sex Assigned at Not on file Legal Sex Female 8:03 PM CDT Gender Identity Not on file Sexual Orientation Not on file documented as of this encounter Functional Status * BP Answer Date of Assessment Author 116/68 04/07/2025 9:42 AM CDT Shazia Diaz, PT * Temp Answer Date of Assessment Author 97.6 04/07/2025 9:42 AM HELENT Shazia Diaz, PT * Pulse Answer Date of Assessment Author 66 04/07/2025 9:42 AM HELENT Shazia Diaz, PT * Resp Answer Date of Assessment Author 16 04/07/2025 9:42 AM CDT Shazia Diaz, PT * SpO2 Answer Date of Assessment Author 97 04/07/2025 9:42 AM CDT Shazia Diaz, PT documented as of this encounter Mental Status * BP Answer Entry Date Author 116/68 04/07/2025 9:42 AM CDT Shazia Diaz, PT * Temp Answer Entry Date Author 97.6 04/07/2025 9:42 AM CDT Shazia Diaz, PT * Pulse Answer Entry Date Author 66 04/07/2025 9:42 AM CDT Shazia Diaz, PT * SpO2 Answer Entry Date Author 97 04/07/2025 9:42 AM CDT Shazia Diaz, PT documented in this encounter Miscellaneous Notes * Telephone Encounter - Lillian Diaz, PT - 04/07/2025 10:23 PM CDT Clinical Support - please fax the following to Dr. Jose Leon. Please respond to each line item below: Patient admitted to [facility] on 04-07-25 for Therapy services. Medication review completed with patient on 04-07-25. Patient reports that she is taking the following OTC Meds : one a day womens multivitamin - takes 1tablet daily, acetaminophen 500mg : 2 tablets by mouth every 6 hours prn for pain, cyanocobalabalamin 2500mcg 1 tablet daily; The following meds need removed from pt's 'not on POC' section of her med list : xanex, norco 7.5-325mg, levothyroxine 100mg and 75mg, lisinopril 20mg, and narcan. Please review the above med discrepancies and respond by calling [facility] with orders at [place] [phone] Option 4, or by fax at [place] - [phone]. documented in this encounter Plan of Treatment Not on file documented as of this encounter Visit Diagnoses Not on filedocumented in this encounter Additional Health Concerns Assessment Noted Time PHQ-9 Depression Total Score: 1 10/04/19 23 2:00 PM RECRUITER documented as of this encounter Care Teams Quantitative Strategy Analyst Relationship Specialty Start Date End Date Jose [place] [address] PCP - General Family Medicine 04/05/25 documented as of this encounter
--- OUTSIDE RECORDS SUMMARY | 2025-06-25 15:43 | XMS_ITS | Encounter Summary ---
Author Organization [facility] Address [address] [place] [address] Phone Care Team Providers Care Turn Operator Name Role Phone Logan Jay MD Primary Care Provider [phone] Jose Leon MD Primary Care Provider [phone] Noreen Youssef [facility] Primary Care Pro vider Logan Jay MD Primary Care Provider Jose Leon MD Primary Care Provider [phone] Reason for Visit * Reason Comments Medication Refill Encounter Details Date Type Department Care Team (Late st Contact Info) Description 08/23/[address] [facility] Medical Group - Internal Medicine - [place] [address] [place] [address] Logan Jay MD [address] [place] [address] Medication Refill Social History Tobacco [...] Telephone Encounter - Odilia Dey RN - 08/23/2020 8:53 AM CST Please review and sign. DENTIAL PROPERTY CONSULTANT documented in this encounter Plan of Treatment Not on file documented as of this encounter Visit Diagnoses Not on filedocumented in this encounter Additional Health Concerns Assessment Noted Time PHQ-9 Depression Total Score: 0 07/07/20 1:00 PM RESIDENTIAL PROPERTY CONSULTANT documented as of this encounter Care Teams Turn Operator Relationship Specialty Start Date End Date Logan Jay MD PCP - General Internal Medicine 11/18/17 07/07/21 Jose Leon MD [address] [place] [address] PCP - General Family Medicine 07/08/21 10/02/22 Noreen Youssef PAC [address] [place] [address] PCP - General Physician Collection Clerk 10/03/22 10/06/22 Logan Jay MD PCP - General Internal Medicine 10/07/22 04/04/25 Jose Leon MD [address] [place] [address] PCP - General Family Medicine 04/05/25 documented as of this encounter
--- OUTSIDE RECORDS SUMMARY | 2025-06-25 15:44 | XMS_ITS | Encounter Summary ---
Author Organization [facility] Address [address] [place] [address] Phone Care Team Providers Care Broom Handle Dipper Name Role Phone Logan Jay MD Primary Care Provider Jose Leon MD Primary Care Provider [phone] Noreen Youssef [facility] Primary Care Pro vider Logan Jay MD Primary Care Provider Jose Leon MD Primary Care Provider [phone] Reason for Visit * Reason Comments Medication Refill Encounter Details Date Type Department Care Team (Late st Contact Info) Description 10/02/2020 Refill [facility] Medical Group - Internal Medicine - [place] [address] [address] Logan Jay MD [address] [place] [address] Medication Refill Social History Tobacco [...] Telephone Encounter - Odilia Dey RN - 10/02/2020 9:10 AM CST Please review and sign. C LIBRARIAN documented in this encounter Plan of Treatment Not on file documented as of this encounter Visit Diagnoses Not on filedocumented in this encounter Additional Health Concerns Assessment Noted Time PHQ-9 Depression Total Score: 0 07/07/20 20 1:00 PM MUSIC LIBRARIAN documented as of this encounter Care Teams Broom Handle Dipper Relationship Specialty Start Date End Date Logan Jay MD PCP - General Internal Medicine 11/18/17 07/07/21 Jose Leon MD [address] [place] [address] PCP - General Family Medicine 07/08/21 10/02/22 Noreen Youssef PAC [address] [place] [address] PCP - General Physician Stock Handler 10/03/22 10/06/22 Logan Jay MD PCP - General Internal Medicine 10/07/22 04/04/25 Jose Leon MD [address] [place] [address] PCP - General Family Medicine 04/05/25 documented as of this encounter
--- OUTSIDE RECORDS SUMMARY | 2025-06-25 15:44 | XMS_ITS | Encounter Summary ---
Author Organization [facility] Address [address] [place] [address] Phone Care Team Providers Care Sandblaster Paint Sprayer Name Role Phone Logan Jay MD Primary Care Provider Jose Leon MD Primary Care Provider [phone] Noreen Youssef [facility] Primary Care Pro vider Logan Jay MD Primary Care Provider Jose Leon MD Primary Care Provider [phone] Reason for Visit * Reason Comments Medication Refill Encounter Details Date Type Department Care Team (Late st Contact Info) Description 09/05/2020 Refill [facility] Medical Group - Internal Medicine - [place] [address] [place] [address] Logan Jay MD [address] [place] [address] Medication Refill Social History Tobacco [...] Telephone Encounter - Odilia Dey RN - 09/05/2020 8:52 AM CST Please review and sign. O TIME SALES SUPERVISOR documented in this encounter Plan of Treatment Not on file documented as of this encounter Visit Diagnoses Not on filedocumented in this encounter Additional Health Concerns Assessment Noted Time PHQ-9 Depression Total Score: 0 07/07/20 20 1:00 PM RADIO TIME SALES SUPERVISOR documented as of this encounter Care Teams Sandblaster Paint Sprayer Relationship Specialty Start Date End Date Logan Jay MD PCP - General Internal Medicine 11/18/17 07/07/21 Jose Leon MD [address] [place] [address] PCP - General Family Medicine 07/08/21 10/02/22 Noreen Youssef PAC [address] [place] [address] PCP - General Physician Mechanic Chief 10/03/22 10/06/22 Logan Jay MD PCP - General Internal Medicine 10/07/22 04/04/25 Jose Leon MD [address] [place] [address] PCP - General Family Medicine 04/05/25 documented as of this encounter
--- OUTSIDE RECORDS SUMMARY | 2025-06-25 15:44 | XMS_ITS | Encounter Summary ---
Author Organization [facility] Address [address] [place] [address] Phone Care Team Providers Care Glaze Carrier Name Role Phone Logan Jay MD Primary Care Provider Jose Leon MD Primary Care Provider [phone] Noreen Youssef [facility] Primary Care Pro vider Logan Jay MD Primary Care Provider Jose Leon MD Primary Care Provider [phone] Reason for Visit * Reason Comments Medication Refill Encounter Details Date Type Department Care Team (Late st Contact Info) Description 10/05/2020 Refill [facility] Medical Group - Internal Medicine - [place] [address] [place] [address] Logan Jay MD [address] [place] [address] Medication Refill Social History Tobacco [...] Telephone Encounter - Odilia Dey RN - 10/05/2020 9:03 AM CST Please review and sign. ERSITY TUTOR documented in this encounter Plan of Treatment Not on file documented as of this encounter Visit Diagnoses Not on filedocumented in this encounter Additional Health Concerns Assessment Noted Time PHQ-9 Depression Total Score: 0 07/07/20 20 1:00 PM UNIVERSITY TUTOR documented as of this encounter Care Teams Glaze Carrier Relationship Specialty Start Date End Date Logan Jay MD PCP - General Internal Medicine 11/18/17 07/07/21 Jose Leon MD [address] [place] [address] PCP - General Family Medicine 07/08/21 10/02/22 Noreen Youssef PAC [address] [place] [address] PCP - General Physician Hospital Social Worker 10/03/22 10/06/22 Logan Jay MD PCP - General Internal Medicine 10/07/22 04/04/25 Jose Leon MD [address] [place] [address] PCP - General Family Medicine 04/05/25 documented as of this encounter
--- OUTSIDE RECORDS SUMMARY | 2025-06-25 15:47 | XMS_ITS | Encounter Summary ---
Author Organization [facility] Healthcare Address [address] [place] [address] Care Team Providers Care Clean Up Helper Banquet Name Role Phone Vik Rudd MD Unavailable [phone] Richard Perla DO Unavailable [phone] Jose Leon MD Primary Care Provider [phone] Kelly Gilliam MA Unavailable [phone] Valery Reina PT Unavailable Unavailable Atilio Gaytan MD Unavailable + [phone] Yolanda TomW Unavailable UnavailMonique Morfin RN Unavailable [phone] Marleny Abdalla MA Unavailable Unavailable Encounter Details Date Type Department Care Team (Late st Contact Info) Description 09/26/2020 Telephone [facility] Imaging Center [address] [place] [address] Mariann Canchola, RT Social History Tobacco Use Types Packs/Day Years Used Date Smoking Tobacco: Never Smokeless Tobacco: Never Alcohol Use Standard Drinks/Week Comments No 0 (1 standard drink = 0.6 oz pur e alcohol) PHQ-2 Answer Date Recorded PHQ-2 Total Score (If total score is 3 or more points, staff should administer the PHQ-9) 2 09/05/2020 Comments No Sex and Gender Information Value Date Recorded Sex Assigned at Not on file Legal Sex Female 7:27 PM NETWORK SOLUTIONS ARCHITECT Gender Identity Not on file Sexual Orientation Not on file documented as of this encounter Plan of Treatment Not on file documented as of this encounter Visit Diagnoses Not on filedocumented in this encounter Additional Health Concerns Infection Onset Date Last Indicated Resolved Time COVID: Suspected 04/15/2021 04/15/2021 04/16/2021 1:31 AM CDT COVID: Suspected 12/01/2021 12/01/2021 12/01/2021 9:58 PM CDT COVID: Suspected 01/01/2022 01/01/2022 01/01/2022 1:45 PM CDT COVID: Suspected 02/12/2022 02/12/2022 02/12/2022 2:39 PM CDT COVID: Suspected 02/16/2022 02/16/2022 02/16/2022 11:23 PM CDT COVID: Suspected 04/17/2022 04/17/2022 04/17/2022 6:56 PM CDT COVID: Suspected 06/27/2022 06/27/2022 06/27/2022 4:26 PM NETWORK SOLUTIONS ARCHITECT COVID: Suspected 07/06/2022 07/06/2022 07/06/2022 3:25 PM NETWORK SOLUTIONS ARCHITECT COVID19 07/06/2022 07/06/2022 07/16/2022 3:05 AM NETWORK SOLUTIONS ARCHITECT COVID: Recovered Comment:Added based on recent COVID infection. 07/16/2022 07/16/2022 10/14/2022 3:05 AM C DT COVID: Suspected 07/16/2022 07/16/2022 2022 12:34 AM NETWORK SOLUTIONS ARCHITECT COVID19 07/16/2022 07/16/2022 07/26/2022 3:06 AM NETWORK SOLUTIONS ARCHITECT COVID: Recovered Comment:Added based on recent COVID infection. 07/26/2022 10/14/2022 10/24/2022 3:05 AM C DT COVID: Suspected 07/19/2023 07/19/2023 07/19/2023 11:46 AM NETWORK SOLUTIONS ARCHITECT COVID: Suspected 09/25/2023 09/25/2023 09/25/2023 3:00 AM NETWORK SOLUTIONS ARCHITECT COVID: Suspected 10/20/2023 10/20/2023 10/20/2023 3:53 PM CDT COVID: Suspected 04/05/2024 04/05/2024 04/05/2024 4:10 PM CDT COVID19 04/05/2024 04/05/2024 04/15/2024 3:07 AM CDT COVID: Recovered Comment:Added based on recent COVID infection. 04/15/2024 04/15/2024 07/14/2024 3:[address] COVID: Suspected 05/11/2024 05/11/2024 05/12/2024 3:05 AM CDT COVID: Suspected 09/04/2024 09/04/2024 09/04/2024 8:01 PM NETWORK SOLUTIONS ARCHITECT documented as of this encounter Care Teams Clean Up Helper Banquet Relationship Specialty Start Date End Date Jose Leon MD [address] [place] [address] PCP - General Family Medicine 09/05/20 Vik Rudd MD Consulting Physician Cardiovascular Disease 07/08/18 Richard Perla DO Cardiovascular Disease 07/08/18 Kelly Gilliam MA [address] [place] [address] [address] [place] [place] [address] ACO Care Manager Pulmonary 01/31/21 01/31/21 Valery Reina, PT Physical Therapist Physical Therapy 04/25/22 Atilio Gaytan MD Consulting Physician Infectious Diseases 07/25/23 Yolanda Tom, PHYSICIST NUCLEAR Client Care Specialist 05/18/24 06/14/24 Monique Casiano RN [address] [place] [address] [place] [address] Director Of Religious Activities 06/07/24 07/07/24 Marleny Abdalla MA [address] [facility] [address] [place] [address] ACO Care Manager Pulmonary 01/13/25 01/16/25 documented as of this encounter
--- OUTSIDE RECORDS SUMMARY | 2025-06-25 15:47 | XMS_ITS | Encounter Summary ---
Author Organization [facility] Address [address] [place] [address] Phone Care Team Providers Care Welfare Eligibility Interviewer Name Role Phone Vik Rudd MD Unavailable [phone] Richard Perla DO Unavailable [phone] Jose Leon MD Primary Care Provider + [phone] Valery Reina PT Unavailable Unavailable Atilio Gaytan MD Unavailable + [phone] Yolanda TomW Unavailable UnavailMonique Morfin RN Unavailable [phone] Marleny Abdalla MA Unavailable Unavailable Reason for Referral * Diagnostic Imaging (Routine) - Closed Specialty Diagnoses / Procedures Referred By Contac t Referred To Contact Diagnoses Primary open angle glaucoma (POAG) of left eye, moderate stage Procedures OCT, Optic Nerve - OU - Both Eyes Mehul Clay MD Phone: tel: fax: [facility] (All Locations) Referral ID Status Reason Start Date Expiration Date Visits Re quested Visits Authorized [id number] Closed 10/02/2023 10/31/2024 1 1 WORKER Encounter Details Date Type Department Care Team (Late st Contact Info) Description 10/02/2023 Orders Only [facility] Medicine Ophthalmology [address] [facility] [place] [address] Mehul Clay MD [address] [facility] [address] [place] [address] Primary open angle glaucoma (POAG) of left eye, moderate stage (Primary Dx) Social History Tobacco Use Types Packs/Day Years Used Date Smoking Tobacco: Never Smokeless Tobacco: Never Alcohol Use Standard Drinks/Week Comments No 0 (1 standard drink = 0.6 oz pur e alcohol) OASIS D0700: Social Isolation Answer Da te Recorded Frequency of experiencing loneliness or isolatio n Never 09/04/2023 OASIS A1250: Transportation Answer Date Recorded Lack of Transportation (Medical) No 09/04/2023 Lack of Transportation (Non-Medical) No 09/04/2023 Patient Unable or Declines to Respond No 09/04/2023 OASIS B1300: Health Literacy Answer Shashi e Recorded Frequency of needing help to read materials from doctor or pharmacy Sometimes 09/04/2023 [facility] Utilities Answer Date Recorded In the past 12 months has [facility] [employer], gas, oil, or water [employer] threatened to shut off services in your home? Yes 09/27/2023 Humiliation, Afraid, Rape, and Kick questionnair e Answer Date Recorded Within the last year, have y ou been afraid of your partner or ex-partner? No 09/27/2023 Within the last year, have y ou been humiliated or emotionally abused in other ways by your partner or ex-partner? No Within the last year, have y ou been kicked, hit, slapped, or otherwise physically hurt by your partner or ex-partner? No 09/27/2023 Within the last year, have y ou been raped or forced to have any kind of sexual activity by your partner or ex-partner? No 09/27/2023 Social Connection and Isolation Panel Answer Date Recorded In a typical week, how many times do you talk on the phone with family, friends, or neighbors? More than three times a week 09/27/2023 How often do you get togethe r with friends or relatives? Three times a week 09/27/2023 How often do you attend chur or mormon services? Never 09/27/2023 Do you belong to any clubs o r organizations such as restoration groups, unions, fraternal or athletic groups, or school groups? No 09/27/2023 How often do you attend meet ings of the clubs or organizations you belong to? Never 09/27/2023 Are you , , di vorced, , never , or living with a partner? 09/27/2023 AUDIT-C Answer Date Recorded Q1: How often do you have a drink containing alcohol? Never 09/27/2023 Q2: How many drinks containi ng alcohol do you have on a typical day when you are drinking? Patient does not drink Q3: How often do you have si x or more drinks on one occasion? Never 09/27/2023 Overall Financial Resource Strain (CARDIA) Answe r Date Recorded How hard is it for you to pa y for the very basics like food, housing, medical care, and heating? Not hard at all 09/27/2023 PHQ-2 Answer Date Recorded PHQ-2 Total Score (If total score is 3 or more points, staff should administer the PHQ-9) 0 09/23/2023 [facility] - Occupational Stress Questionnaire Answer Date Recorded Do you feel stress - tense, restless, nervous, or anxious, or unable to sleep at night because your mind is troubled all the time - these days? Not at all 09/27/2023 Exercise Vital Sign Answer Date Recorde d On average, how many days pe r week do you engage in moderate to strenuous exercise (like a brisk walk)? 7 days 09/27/2023 On average, how many minutes do you engage in exercise at this level? 130 min 09/27/2023 Hunger Vital Sign Answer Date Recorded Within the past 12 months, y ou worried that your food would run out before you got the money to buy more. Never true 09/27/19 Within the past 12 months, t he food you bought just didn't last and you didn't have money to get more. Never true 09/27/2023 PRAPARE - Transportation Answer Date Re corded In the past 12 months, has l ack of transportation kept you from medical appointments or from getting medications? No 09/05 In the past 12 months, has l ack of transportation kept you from meetings, work, or from getting things needed for daily living? No 09/27/2023 Housing Stability Vital Sign Answer Shashi e Recorded In the last 12 months, was t here a time when you were not able to pay the mortgage or rent on time? No 09/27/2023 In the last 12 months, how many places have you lived? 1 09/27/2023 In the last 12 months, was t here a time when you did not have a steady place to sleep or slept in a care home (including now)? No 09/27/2023 Personal Safety Answer Date Recorded Have you ever been in or are you currently in a harmful physical or emotional relationship or is someone making you feel afraid or unsafe? Denies 09/25/2023 Comments No Sex and Gender Information Value Date Recorded Sex Assigned at Not on file Legal Sex Female 7:27 PM DECK WORKER Gender Identity Not on file Sexual Orientation Not on file documented as of this encounter Plan of Treatment Not on file documented as of this encounter Goals Goal Patient Goal Type Associated Problems Recent Progress Patient-Stated? Author JIGAR General Goal - Patient schedules and keeps appointments with all recommended providers ACO Care Management On track(2023 11:06 AM DECK WORKER) No Monique Grande RN Note: Problem: Potential for medical complications and readmission if follow-up appointments are not scheduled Interventions: - Ensure all follow-up appointments are scheduled, all prescribed medications have been received. - Address any barriers for keeping scheduled appointment. - Coordinate with patient/caregiver(s) to ensure patient is able to keep scheduled appointment. - Emphasize importance of keeping scheduled appointments. - Identify and discuss questions for next provider visit. - Follow up with patient after scheduled appointment(s) to review any new orders or changes made to medication regimen. documented as of this encounter Procedures Procedure Name Priority Date/Time Associated Diagnosis Comments OCT, OPTIC NERVE - OU - BOTH EYES Routine 12/18/2023 1:52 PM CDT Primary open angle glaucoma (POAG) of left eye, moderate stage documented in this encounter Results * OCT, Optic Nerve - OU - Both Eyes (12/18/2023 1:52 PM CDT) Anatomical Region Laterality Modality Head Other Narrative 12/19/2023 10:33 AM CDT Left Eye Reliability was borderline. Notes OS Only: Polar thinning, severe, grossly stable GCC: / us Mehul Clay MD OPHTH TOMOGRAPHY Edited Resul t - Final documented in this encounter Visit Diagnoses Diagnosis Primary open angle glaucoma (POAG) of left eye, moderate stage- Primary Primary open angle glaucoma (POAG) of left eye, moderate stage- Primary Suprachoroidal hemorrhage, right documented in this encounter Additional Health Concerns Infection Onset Date Last Indicated Resolved Time COVID: Suspected 10/20/2023 10/20/2023 10/20/2023 3:53 PM CDT COVID: Suspected 04/05/2024 04/05/2024 04/05/2024 4:10 PM CDT COVID19 04/05/2024 04/05/2024 04/15/2024 3:07 AM CDT COVID: Recovered Comment:Added based on recent COVID infection. 04/15/2024 04/15/2024 07/14/2024 3:[address] COVID: Suspected 05/11/2024 05/11/2024 05/12/2024 3:05 AM CDT COVID: Suspected 09/04/2024 09/04/2024 09/04/2024 8:01 PM DECK WORKER documented as of this encounter Care Teams Welfare Eligibility Interviewer Relationship Specialty Start Date End Date Jose [place] [address] PCP - General Family Medicine 09/05/20 Vik Rudd MD Consulting Physician Cardiovascular Disease 07/08/18 Richard Perla DO Cardiovascular Disease 07/08/18 Valery Reina, PT Physical Therapist Physical Therapy 04/25/22 Atilio Gaytan MD Consulting Physician Infectious Diseases 07/25/23 Yolanda Tom LCSW Emergency Room Rn 05/18/24 06/14/24 Monique Casiano RN [address] [place] [address] [place] [address] Speech Language Pathologist Travel 06/07/24 07/07/24 Marleny Abdalla MA [address] [place] [address] [address] [place] [place] [address] ACO Care Leak Operator Paraffin Plant 01/13/25 01/16/25 documented as of this encounter
--- OUTSIDE RECORDS SUMMARY | 2025-06-25 15:47 | XMS_ITS | Encounter Summary ---
Author Organization [facility] Healthcare Address [address] [place] [address] Care Team Providers Care Derrick Car Operator Name Role Phone Vik Rudd MD Unavailable [phone] Richard Perla DO Unavailable [phone] Jose Leon MD Primary Care Provider [phone] Valery Reina PT Unavailable Unavailable Atilio Gaytan MD Unavailable + [phone] Encounter Details Date Type Department Care Team (Late st Contact Info) Description 04/06/2025 Telephone [facility] [address] [address] Jose Leon MD [address] [place] [address] Social History Tobacco Use Types Packs/Day Years Used Date Smoking Tobacco: Never Smokeless Tobacco: Never Alcohol Use Standard Drinks/Week Comments No 0 (1 standard drink = 0.6 oz pur e alcohol) OASIS D0700: Social Isolation Answer Da te Recorded Frequency of experiencing loneliness or isolatio n Never 12/02/2024 OASIS A1250: Transportation Answer Date Recorded Lack of Transportation (Medical) No 12/02/2024 Lack of Transportation (Non-Medical) No 12/02/2024 Patient Unable or Declines to Respond No 12/02/2024 OASIS B1300: Health Literacy Answer Shashi e Recorded Frequency of needing help to read materials from doctor or pharmacy Never 12/02/2024 [facility] Utilities Answer Date Recorded In the past 12 months has th e [facility], [employer], oil, or water [employer] threatened to shut off services in your home? No 06/07/2024 Humiliation, Afraid, Rape, and Kick questionnair e [...] neighbors? More than three times a week 06/07/2024 How often do you get togethe r with friends or relatives? Three times a week 06/07/2024 How often do you attend chur or catholic services? Never 06/07/2024 Do you belong to any clubs o r organizations such as quaker groups, unions, fraternal or athletic groups, or school groups? No 06/07/2024 How often do you attend meet ings of the clubs or organizations you belong to? Never 06/07/2024 Are you , , di vorced, , never , or living with a partner? 06/07/2024 AUDIT-C Answer Date Recorded Frequency of Alcohol Consumption Not on file 04/23/2024 Q2: How many drinks containi ng alcohol do you have on a typical day when you are drinking? Patient does not drink Frequency of Binge Drinking Not on file 04/05 Overall Financial Resource Strain (CARDIA) Answe r Date Recorded How hard is it for you to pa y for the very basics like food, housing, medical care, and heating? Somewhat hard 06/07/2024 PHQ-2 Answer Date Recorded PHQ-2 Total Score (If total score is 3 or more points, staff should administer the PHQ-9) 2 03/31/2025 [facility] - Occupational Stress Questionnaire Answer Date Recorded Do you feel stress - tense, restless, nervous, or anxious, or unable to sleep at night because your mind is troubled all the time - these days? Only a little 06/04/2024 Exercise Vital Sign Answer Date Recorde d [...] the money to buy more. Never true 06/07/20 24 Within the past 12 months, t he food you bought just didn't last and you didn't have money to get more. Never true 06/07/2024 PRAPARE - Transportation Answer Date Re corded In the past 12 months, has l ack of transportation kept you from medical appointments or from getting medications? No 11/2023 In the past 12 months, has l ack of transportation kept you from meetings, work, or from getting things needed for daily living? No 06/07/2024 Housing Stability Vital Sign Answer Shashi e Recorded In the last 12 months, was t here a time when you were not able to pay the mortgage or rent on time? No 10/21/2023 In the last 12 months, how many places have you lived? 1 10/21/2023 In the last 12 months, was t here a time when you did not have a steady place to sleep or slept in a snf (including now)? No 10/21/2023 Housing Stability Vital Sign Answer Shashi e Recorded In the last 12 months, was t here a time when you were not able to pay the mortgage or rent on time? No 06/07/2024 In the past 12 months, how m any times have you moved where you were living? 0 06/07/2024 At any time in the past [address] [facility], were you homeless or living in a snf (including now)? No 06/07/2024 Personal Safety Answer Date Recorded Have you ever been in or are you currently in a harmful physical or emotional relationship or is someone making you feel afraid or unsafe? Denies 02/22/2025 Comments No Sex and Gender Information Value Date Recorded Sex Assigned at Not on file Legal Sex Female 7:27 PM HISTORIC SITES REGISTRAR Gender Identity Not on file Sexual Orientation Not on file documented as of this encounter Plan of Treatment Not on file documented as of this encounter Goals Goal Patient Goal Type Associated Problems Recent Progress Patient-Stated? Author JIGAR General Goal - Patient schedules and keeps appointments with all recommended providers ACO Care Management On track(07/08 11:06 AM HISTORIC SITES REGISTRAR) No Monique Grande, RN Note: Problem: Potential for medical complications [...] orders or changes made to medication regimen. JIGAR General Goal - Patient / caregiver verbalizes lifestyle changes necessary to meet self-care needs and executes self-care activities to utmost capability ACO Care Management On track(07/08 11:06 AM HISTORIC SITES REGISTRAR) No Monique Casiano, RN Note: Problem: At Risk for Self Care Deficit Interventions: - Assess patient's level of dependence on others along with current level of assistance being provided. - Use motivational interviewing to help guide the patient in accepting the needed amount of assisstance, as applicable. - Contact caregiver and assess their involvement with patient and level of assistance provided, as appropriate. - Assess appropriateness for Home Health. Start referral process if skilled need is present. - Encourage independent ADL's as appropriate. Ensure patient has the appropriate tools at home to be as independent as possible. - Provide fall prevention education to patient and caregiver. - Evaluate need for assistive devices. - Refer to SW if appropriate and patient is agreeable. documented as of this encounter Visit Diagnoses Not on filedocumented in this encounter Care Teams Derrick Car Operator Relationship Specialty Start Date End Date Jose Leon MD [address] [place] [address] PCP - General Family Medicine 09/05/20 Vik Rudd MD Consulting Physician Cardiovascular Disease 07/08/18 Richard Perla DO Cardiovascular Disease 07/08/18 Valery Reina, PT Physical Therapist Physical Therapy 04/25/22 Atilio Gaytan MD Consulting Physician Infectious Diseases 07/25/23 documented as of this encounter
--- OUTSIDE RECORDS SUMMARY | 2025-06-25 15:47 | XMS_ITS | Encounter Summary ---
Author Organization [facility] Healthcare Address [address] [place] [address] Care Team Providers Care It Help Desk Manager Name Role Phone Vik Rudd MD Unavailable [phone] Richard Perla DO Unavailable [phone] Jose Leon MD Primary Care Provider [phone] Kelly Gilliam MA Unavailable [phone] Valery Reina PT Unavailable Unavailable Atilio Gaytan MD Unavailable + [phone] Yolanda Tom LCSW Unavailable UnavailMonique Morfin RN Unavailable [phone] Marleny Abdalla MA Unavailable Unavailable Encounter Details Date Type Department Care Team (Late st Contact Info) Description 09/21/2020 Telephone [facility] Imaging Center [address] [place] [address] Karen Hutchinson, RT Social History Tobacco Use Types Packs/Day [...] on file Legal Sex Female 7:27 PM HEALTHCARE ADMINISTRATION INTERNSHIP Gender Identity Not on file Sexual Orientation [...] COVID: Suspected 06/27/2022 06/27/2022 06/27/2022 4:26 PM HEALTHCARE [employer]MIN[employer] INTERNS[employer]IP COVID: Suspected 07/06/2022 07/06/2022 07/06/2022 3:25 PM HEALTHCARE ADMINISTRATION INTERNSHIP COVID19 07/06/2022 07/06/2022 07/16/2022 3:05 AM HEALTHCARE ADMINISTRATION INTERNSHIP COVID: Recovered Comment:Added based on recent COVID infection. 07/16/2022 07/16/2022 10/14/2022 3:05 AM C DT COVID: Suspected 07/16/2022 07/16/2022 2022 12:34 AM HE[employer] INTER[employer]IP COVID19 07/16/2022 07/16/2022 07/26/2022 3:06 AM HEALTHC[employer] AD[employer] INTERNS[employer]IP COVID: Recovered Comment:Added based on recent COVID infection. 07/26/2022 10/14/2022 10/24/2022 3:05 AM C DT COVID: Suspected 07/19/2023 07/19/2023 07/19/2023 11:46 AM HE[employer] INTER[employer]IP COVID: Suspected 09/25/2023 09/25/2023 09/25/2023 3:00 AM HE[employer]IP COVID: Suspected 10/20/2023 10/20/2023 10/20/2023 3:53 PM CDT COVID: Suspected 04/05/2024 04/05/2024 04/05/2024 4:10 PM CDT COVID19 04/05/2024 04/05/2024 04/15/2024 3:07 AM CDT COVID: Recovered Comment:Added based on recent COVID infection. 04/15/2024 04/15/2024 07/14/2024 3:[address] COVID: Suspected 05/11/2024 05/11/2024 05/12/2024 3:05 AM CDT COVID: Suspected 09/04/2024 09/04/2024 09/04/2024 8:01 PM HE[employer]MIN[employer] INTERNS[employer] documented as of this encounter Care Teams It Help Desk Manager Relationship Specialty Start Date End Date Jose Leon MD [address] [place] [address] PCP - General Family Medicine 09/05/20 Vik Rudd MD Consulting Physician Cardiovascular Disease 07/08/18 Richard Perla DO Cardiovascular Disease 07/08/18 Kelly Gilliam MA [address] [place] [address] [address] [place] [place] [address] ACO Care E Learning Coordinator 01/31/21 01/31/21 Valery Reina, PT Physical Therapist Physical Therapy 04/25/22 Atilio Gaytan MD Consulting Physician Infectious Diseases 07/25/23 Yolanda Tom, FIELD SALES ENGINEER Director Financial Services 05/18/24 06/14/24 Monique Casiano RN [address] [place] [address] [place] [address] Manager Life Insurance 06/07/24 07/07/24 Marleny Abdalla MA [address] [facility] [address] [place] [facility] [place] [address] ACO Care E Learning Coordinator 01/13/25 01/16/25 documented as of this encounter
--- OUTSIDE RECORDS SUMMARY | 2025-06-25 15:47 | XMS_ITS | Encounter Summary ---
Author Organization [facility] Healthcare Address [address] [place] [address] Care Team Providers Care Agriculture Science Teacher Name Role Phone Logan Jay MD Primary Care Provider [phone] Vik Rudd MD Unavailable +[phone] Richard Perla DO Unavailable [phone] Jose Leon MD Primary Care Provider + -[phone] Kelly Gilliam MA Unavailable [phone] Valery Reina PT Unavailable Unavailable Atilio Gaytan MD Unavailable [phone]- [phone] Yolanda TomW Unavailable UnavailMonique Morfin RN Unavailable [phone] Marleny Abdalla MA Unavailable Unavailable Encounter Details Date Type Department Care Team (Late st Contact Info) Description 01/18/2020 Telephone [facility] [address] [place] [id number] Daniel Han, RT Social History Tobacco Use Types Packs/Day Years Used Date Smoking Tobacco: Never Smokeless Tobacco: Never Alcohol Use Standard Drinks/Week Comments No 0 (1 standard drink = 0.6 oz pur e alcohol) Comments No Sex and Gender Information Value Date Recorded Sex Assigned at Not on file Legal Sex Female 7:27 PM IRON SETTER Gender Identity Not on file Sexual Orientation [...] COVID: Suspected 06/27/2022 06/27/2022 06/27/2022 4:26 PM IRON SETTER COVID: Suspected 07/06/2022 07/06/2022 07/06/2022 3:25 PM IRON SETTER COVID19 07/06/2022 07/06/2022 07/16/2022 3:05 AM IRON SETTER COVID: Recovered Comment:Added based on recent COVID infection. 07/16/2022 07/16/2022 10/14/2022 3:05 AM C DT COVID: Suspected 07/16/2022 07/16/2022 2022 12:34 AM IRON SETTER COVID19 07/16/2022 07/16/2022 07/26/2022 3:06 AM IRON SETTER COVID: Recovered Comment:Added based on recent COVID infection. 07/26/2022 10/14/2022 10/24/2022 3:05 AM C DT COVID: Suspected 07/19/2023 07/19/2023 07/19/2023 11:46 AM IRON SETTER COVID: Suspected 09/25/2023 09/25/2023 09/25/2023 3:00 AM IRON SETTER COVID: Suspected 10/20/2023 10/20/2023 10/20/2023 3:53 PM CDT COVID: Suspected 04/05/2024 04/05/2024 04/05/2024 4:10 PM CDT COVID19 04/05/2024 04/05/2024 04/15/2024 3:07 AM CDT COVID: Recovered Comment:Added based on recent COVID infection. 04/15/2024 04/15/2024 07/14/2024 3:[address] COVID: Suspected 05/11/2024 05/11/2024 05/12/2024 3:05 AM CDT COVID: Suspected 09/04/2024 09/04/2024 09/04/2024 8:01 PM IRON SETTER documented as of this encounter Care Teams Agriculture Science Teacher Relationship Specialty Start Date End Date Logan Jay MD [address] [place] [address] PCP - General 03/14/11 09/04/20 Jose Leon MD [address] [place] [address] PCP - General Family Medicine 09/05/20 Vik Rudd MD [address] [place] [address] Consulting Physician Cardiovascular Disease 07/08/18 Richard Perla DO [address] [place] [address] Cardiovascular Disease 07/08/18 Kelly Gilliam MA [address] [place] [address] [place] [address] ACO Care Aviation Maintenance Technician 01/31/21 01/31/21 Valery Reina, PT Physical Therapist Physical Therapy 04/25/22 Atilio Gaytan MD Consulting Physician Infectious Diseases 07/25/23 Yolanda Tom LCSW Room Service Server 05/18/24 06/14/24 Monique Casiano RN [address] [place] [address] [place] [address] Web Development Manager 06/07/24 07/07/24 Marleny Abdalla MA [address] [place] [address] [address] [facility] [place] [place] [address] ACO Care Aviation Maintenance Technician 01/13/25 01/16/25 documented as of this encounter
--- OUTSIDE RECORDS SUMMARY | 2025-06-25 15:48 | XMS_ITS | Encounter Summary ---
Author Organization [facility] Healthcare Address [address] [place] [address] Care Team Providers Care Hand Woodworking Sander Name Role Phone Vik Rudd MD Unavailable [phone] Richard Perla DO Unavailable [phone] Jose eLon MD Primary Care Provider [phone] Valery Reina PT Unavailable Unavailable Atilio Gaytan MD Unavailable + [phone] Reason for Visit * Reason Onset Date Comments Appointment Request 06/20/2025 Encounter Details Date Type Department Care Team ([facility] Contact Info) Description 06/20/2025 Telephone [facility] [address] [address] Jose Leon MD [address] [place] [address] Appointment Request Social History Tobacco Use Types Packs/Day Years [...] materials from doctor or pharmacy Never 12/02/2024 [facility] Utilities Answer Date Recorded In the past 12 months has e [employer], [employer], or water [employer] threatened to shut off services in your [...] 06/07/2024 How often do you attend chur ch or zoroastrianism services? Never 06/07/2024 Do you belong to any clubs o r organizations such as religious groups, unions, fraternal or athletic groups, or [...] points, staff should administer the PHQ-9) 2 05/19/2025 [facility] - Occupational Stress Questionnaire Answer Date [...] money to buy more. Never true 06/07/20 Within the past 12 months, t he [...] place to sleep or slept in a alf (including now)? No 10/21/2023 Housing Stability Vital Sign Answer Shashi e Recorded In the last 12 months, was t here a time when you were not able to pay the mortgage or rent on time? No 06/07/2024 In the past 12 months, how m any times have you moved where you were living? 0 06/07/2024 At any time in the past 12 m [facility], were you homeless or living in a alf (including now)? No 06/07/2024 Personal Safety Answer Date Recorded Have you ever been in or are you currently in a harmful physical or emotional relationship or is someone making you feel afraid or unsafe? Denies 02/22/2025 Comments No Sex and Gender Information Value Date Recorded Sex Assigned at Not on file Legal Sex Female 7:27 PM CLAIMS ADJUSTER Gender Identity Not on file Sexual Orientation Not on file documented as of this encounter Miscellaneous Notes * Telephone Encounter - Robby Power - 06/20/2025 10:36 AM CST Appointment Request What visit type does the patient need? Visit Type: Preventative What is the reason for the visit? Rescheudling from 06/14/25 What is the reason we were unable to schedule the appointment? Current appointment availability didnot meet patient's need. Earliest available 08/29 If applicable, were all members of the patient's PCP care team offered (e.g., nurse practioner(s), physician pastry assistant(s)) ? Yes Additional Comments: None Does message need to be routed? Yes-Action Needed MS ADJUSTER documented in this encounter Plan of Treatment Not on file documented as of this encounter Goals Goal Patient Goal Type Associated Problems Recent Progress Patient-Stated? Author JIGAR General Goal - Patient schedules and keeps appointments with all recommended providers ACO Care Management On track(07/08 11:06 AM CLAIMS ADJUSTER) No Monique Grande RN Note: Problem: Potential [...] ACO Care Management On track(07/08 11:06 AM CLAIMS ADJUSTER) Monique Fong, RN Note: Problem: At Risk for Self [...] on filedocumented in this encounter Care Teams Hand Woodworking Sander Relationship Specialty Start Date End Date Jose Leon MD [address] [place] [address] PCP - General Family Medicine 09/05/20 Vik Rudd MD Consulting Physician Cardiovascular Disease 07/08/18 Richard Perla DO Cardiovascular Disease 07/08/18 Valery Reina, PT Physical Therapist Physical Therapy 04/25/22 Atilio Gaytan MD Consulting Physician Infectious Diseases 07/25/23 documented as of this encounter
--- OUTSIDE RECORDS SUMMARY | 2025-06-25 15:48 | XMS_ITS | Clinical Summary ---
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 CDT): Diffuse SPEE OD on exam today w/ some mucous. No infection. Patients symptoms are all chronic OD except new FBS that resolved w/ visine use. Advised pt to start celluvisc tears as often as necessary for comfort. (+)NVI OD noted on exam today, not previously documented. IOP stable at 2. Will notify Dr. Clay of today's visit. F/u scheduled w/ Dr. Clay 12/31/2022 for HVF OS CPM latanoprost qhs OS for now Assessment & Plan (06/07/2022 2:46 PM CDT): Presenting IOP in the 60s right eye Df includes PXG - now s/p multiple dCPC. Most recent 05.07.22. - today IOP 42 at POM1 off prednisolone. - At last visit discussion included BRANDING MACHINE OPERATOR versus tube, at which point BRANDING MACHINE OPERATOR was pursued. - Patient wondering about additional surgery because IOP is high today. Long discussion today that the goal of additional procedures would be to maintain light perception (LP) vision and keep the eye comfortable (currently it is comfortable). Discussed that the vision is not expected to improve. - Discussed the case with Dr. San; tube surgery is reasonable to protect the remaining vision. - Continue latanoprost, brimonidine. Can add dorzolamide. (dizziness with past drop - will avoid timolol) Tmax left eye is 24 but also thin on OCT RNFL - Extensive discussions today about monocular precautions and close monitoring to protect left eye. - Due for updated testing Return: Schedule for tube surgery. Otherwise 1 month HVF 24-2 and OCT RNFL left eye Assessment & Plan (05/14/2022 9:30 AM CDT): POW#1 s/p dCPC OD - IOP improved to 14 - taper PF 3-2-1 - continue latanoprost qHS OU and brimonidine BID OD - follow [address] Lopez Assessment & Plan (05/07/2022 12:29 PM CDT): Here for dCPC OD - IOP too high - continue drops - add PF QID OD - follow 1 week Assessment & Plan (04/22/2022 12:23 PM CDT): IOP OD continues to be uncontrolled despite 2 classes and dCPC x2 Patient missed last 2 appointments due to back pain Now with [facility] Disucssed repeating dCPC vs Ahmed OD Given need for multiple diodes, patient opts for Ahmed OD The patient understands the risks, benefits, alternatives and wishes to proceed with glaucoma surgery. We discussed all viable surgical options including MIGS, lasers, and more invasive incisional surgeries. When taking a stepwise approach to glaucoma, the patient understands that the surgery is not curative and we may need to perform additional glaucoma surgery in the future. There is also risk for hypotony, bleeding, infection and rarely vision loss. The patient agrees to proceed with Ahmed right eye. Assessment & Plan (02/28/2022 2:14 PM CDT): POW#8 s/p dCPC OD VA down to CF (from 20/500) IOP today: 45, c/o sinus pain and dizziness around OD. Eye white and quiet. Has been using fluticasone due to presumed sinus issues and dizziness. Will avoid starting cosopt due to presumed dizziness with use. Plan: - Stop fluticasone- discussed with patient - Start Brimonidine BID OD - Continue latanoprost qhs OU - Check IOP 03/15/22 and possible dCPC OD at [facility] Assessment & Plan (01/03/2022 4:12 PM CDT): POW#2 s/p dCPC OD - plan to D/C cosopt for dizziness - taper PF 3-2-1 - continue brimonidine BID OD - continue latanoprost qHS OU - IOP much improved - follow 4-6 weeks, sooner for concerns Assessment & Plan (12/17/2021 5:21 PM CDT): Urgent visit for IOP spike and dizziness Plan for AC tap today and dCPC OD Angle remains open, no NVI Discussed r/b/i of dCPC OD and patient agreeable Start PF QID OD, continue drops Follow 1 week Assessment & Plan (11/16/2021 9:58 AM CDT): Primary open angle glaucoma (POAG) Severe right eye (OD), Mild left eye (OS) s/p dCPC OD s/p steroid injection for back pain in Jul 2021; Pt reports unable to use diamox d/t side effects Summary of today's findings: - visual acuity (VA): 20/200 OD, 20/25 OS - intraocular pressure (IOP): 32, 29 / 18.5, 16 (on cos 2/0, brim 2/0, latan 1/1) Plan: Proceed with diode right eye (OD) - will call with which date works for them RIGHT EYE Cosopt (DARK BLUE TOP) 1 drop TWICE a day Increase Brimonidine (PURPLE TOP) 1 drop 2x a day until laser Latanoprost (TEAL TOP) 1 drop at bedtime LEFT EYE: Latanoprost (TEAL TOP) 1 drop at bedtime Assessment & Plan (08/17/2021 10:25 AM [employer]): Primary open angle glaucoma (POAG) Severe right eye (OD), Mild left eye (OS) Now s/p dCPC OD and IOP 40 on 3 classes OD (previously mid-20s on gtts) s/p steroid injection for back pain in Jul 2021 Pt reports unable to use diamox d/t side effects Visual acuity (VA) 20/150 right eye (OD), 20/20 left eye (OS) Intraocular pressure (IOP) on 4 classes right eye (OD), 1 class left eye (OS) Plan: Continue 4 classes on right eye (OD) and 2 classes left eye (OS) Try to transition to rocklatan at bedtime (qhs) RTC in 2 mo for intraocular pressure (IOP) check and Size visual acuity (V) right eye (OD) and size 3 24-2 OS RIGHT EYE Cosopt (DARK BLUE TOP) 1 drop TWICE a day Brimonidine (PURPLE TOP) 1 drop 3Xa day Latanoprost (TEAL TOP) 1 drop at bedtime - try to transition to rocklatan LEFT EYE: Latanoprost (TEAL TOP) 1 drop at bedtime Assessment & Plan (08/09/2021 1:06 PM [employer]): Presenting IOP in the 60s Now s/p dCPC OD and IOP 40 on 3 classes OD (previously mid-20s on gtts) Off PF now but s/p steroid injection for back pain 3 weeks ago Pt reports unable to use diamox d/t side effects D/c dorzolamide and latanoprost. Start cosopt BID OD, rocklatan qhs OU, continue brimonidine TID OD. Discussed management with Dr. San today, she will see patient next week for followup. Pt to return to clinic with new or worsening vision changes or ocular pain. Assessment & Plan (06/04/2021 11:37 AM CDT): Presenting IOP in the 60s Now s/p dCPC OD and IOP 25 on 3 classes OD Taper off PF - goal around 21 Continue current drops, D/C PF Follow 3 months with HVF OU Assessment & Plan (05/15/2021 3:36 PM CDT): POW#2 s/p dCPC OD Presents today as urgent add on due to visual acuity (VA) changes and headaches right eye (OD) NO scalp tenderness, no jaw claudication. +photophobia Stopped pred forte abruptly without steroid taper since last visit Assessment/Plan: Rebound iritis right eye (OD) with mildly painful injected eye - Restart pred taper (4-3-2-1) - RTC in 1 week for iop check since elevated today to 27 mm Hg and significant cell/flare. RIGHT EYE: Increase to Dorzolamide (ORANGE TOP) 1 drop 3 times a day Increase to Brimonidine (PURPLE TOP) 1 drop 3 times a day Pred forte (PINK TOP) 1 drop 4 times a day for 1 week 1 drop 3 times a day for 1 week, Then 1 drop 2 times a day for 1 week, Then 1 drop 1 times a day for 1 week, Then stop. 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; patient has follow-up with Ophthalmology, scheduled for shunt placement Assessment & Plan (03/19/2021 11:23 AM CDT): Severe OD, mild OS IOP OD remains too high - 24 today on 3 classes Avoiding timolol Again discussed given IOP, at risk of further vision loss Discussed XEN vs dCPC, r/b/i of each Patient opts for dCPC OD Follow for procedure Assessment & Plan (02/02/2021 12:22 PM CDT): At this time concern for PXG, APD OD IOP improved, continue latanoprost qHS OU, dorzolamide BID OD, and brimonidine BID OD Today IOP remains normal - discussed group home will need XEN vs dCPC Patient feels this is her worse seeing eye, so does not want an intervention Given good VA, would lean towards XEN, but given patient's hesitancy away from surgery ok with dCPC Follow 6 weeks with surgical decision Assessment & Plan (01/29/2021 7:22 AM CDT): Referral from Dr. De La Torre. Patient notes that >1 year ago she slowly lost vision OD Was seen by Dr. Brasher and told it was 2/2 to elevated BP and there was nothing he could do No h/o injections Over the last 3-4 months she notes that she has had intermittent headaches and blurred vision with progressive vision loss Presented yesterday with IOP of 62 After diamox and several rounds of drops - IOP today improved to 24 Exam with no NVI/NVA, open but possibly PXF material at pupillary margin and pigmented angle HVF with Dr. 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, history of trauma ou, open angles, no neovascular glaucoma (NVG), no iritis Poor response to topicals (cannot take timolol) and Diamox Refer to glaucoma tomorrow Dizzy 11/14/2020 Assessment & Plan (04/20/2024 3:57 PM CDT): Not well controlled, continues to have episodes of falls; had sounds like it is full of bees Patient does have fungal ball in nasal sinuses; would recommend follow-up, continues to have symptoms after resolution of fungal ball, would evaluate for other potential causes of inner ear disease Assessment & Plan (11/14/2020 8:55 AM CDT): Gets motion sickness, occurs in car, responds to dramamine DDD (degenerative disc disease), lumbar 10/12/19 21 Age-related osteoporosis wit hout current pathological fracture 10/04/2020 Assessment & Plan (03/25/2023 4:01 PM CDT): Continued intake of calcium and vitamin-D to try to maintain bone density Assessment & Plan (01/06/2023 3:38 PM CDT): DEXA on 12/10/2022 demonstrates osteoporosis; no current medications for treatment Continue to monitor, encourage appropriate calcium and vitamin-D take Given acid reflux, will hold on starting bisphosphonates Assessment & Plan (09/24/2022 4:19 PM [employer]): Stable, no fractures follows Assessment & Plan (07/09/2022 3:31 PM [employer]): Current medications for osteoporosis; encouraged patient to get 1200 mg calcium daily, 800 IU of vitamin-D daily Continue to monitor and encourage regular activity and exercise Assessment & Plan (10/09/2021 4:35 PM [employer]): Not well controlled, will start risedronate weekly 35 mg for osteoporosis; continue to watch calcium, PTH and vitamin-D levels given renal function Assessment & Plan (04/05/2021 9:05 AM CDT): Continue high dose vitamin-D and calcium supplementation; with target of 1000 mg of calcium per day through supplements or diet Assessment & Plan (12/28/2020 5:12 PM CDT): Continue with calcium and vitamin-D supplementation to improve bone density Assessment & Plan (11/14/2020 8:47 AM CDT): Discussed DEXA scan with patient; at this time she would like to continue with VitD and Calcium supplements, defers bisphosphonate -will continue to monitor; fall precautions and will adjust plan as necessary. Assessment & Plan (10/04/2020 2:48 PM [employer]): Discussed with patient medical options; given patient's dysphagia she would like to hold off on starting bisphosphonate therapy and is not currently interested in injections -will start Ca and VitD supplements today -will continue to address other medical options at future appointment when dysphagia is better evaluated snf current use of anticoagulant Assessment & Plan (03/28/2021 4:04 PM CDT): Stable, well controlled No evidence of anemia on previous labs; will recheck at follow-up visit No significant episodes of bruising or bleeding Pharyngoesophageal dysphagia 09/08/2020 Overview (09/08/2020): Added automatically from request for surgery [id number] Assessment & Plan (03/25/2023 3:59 PM CDT): Continues to have occasional episodes of dysphagia, not all foods Continue pantoprazole 40 mg daily Assessment & Plan (08/26/2022 3:32 PM [employer]): Observe for eso sx and if present call me to repeat egd Assessment & Plan (03/14/2022 2:29 PM CDT): Patient continues to have difficulty with swallowing; continue pantoprazole 40 mg daily, famotidine 20 mg daily Patient reports weight loss, unclear if related to dysphagia verses other metabolic causes Thoracic aortic aneurysm without rupture 021 Assessment & Plan (03/02/2024 4:44 PM CDT): Stable, no significant evolution of aneurysm Continue to monitor with regular imaging Assessment & Plan (08/22/2023 2:12 PM [employer]): Stable, no major changes; continue to follow with Cardiology and vascular for surveillance Assessment & Plan (05/22/2023 3:56 PM CDT): Stable, has remained stable on multiple CT scans, continue with regular surveillance Assessment & Plan (07/09/2022 3:29 PM [employer]): Stable, 4.3 cm, compatible to 1 year ago Continue to monitor thoracic aneurysm Assessment & Plan (03/28/2021 4:05 PM CDT): Stable will continue to monitor with routine imaging Assessment & Plan (09/05/2020 1:08 PM [employer]): Patient has stable thoracic aortic aneurysm, will continued monitoring with CT imaging -CT ordered Esophageal dysphagia 09/05/2020 Assessment & Plan (12/17/2023 4:43 PM CDT): Stable, improving; chronic in nature Continue to monitor, may encourage referral to [facility] for further evaluation Assessment & Plan (01/06/2023 3:36 PM CDT): Patient has good appetite, but continues to have weight loss as she spits back food, especially has difficulty with breads Generally healthy, using nutritional states for caloric supplementation Reports she sometimes feels shaky on edge Has known hiatal hernia with acid reflux Patient to follow-up with general surgery, will need EGD to evaluate for risk of esophagitis Assessment & Plan (08/21/2021 1:19 PM [employer]): egd probable dil Assessment & Plan (10/04/2020 2:50 PM [employer]): Has episodes of regurgitation and choking sensation, has history of GERD, but no current medications -will start famotidine today; continue to monitor and wait for results from EGD Assessment & Plan (09/05/2020 1:26 PM [employer]): Occasional episodes of 'food stuck' in throat, has multiple family members (children and grandchildren) with strictures that have required dilation; will refer to GI, if EGD normal, consider swallow study. Osteoarthritis of right hip 07/06/2020 Sacroiliitis 06/28/2020 Assessment & Plan (05/22/2023 3:54 PM CDT): Not well controlled, has significant low back pain; unclear if related to lumbar spine versus sacroiliitis Patient is on Eliquis and can not tolerate NSAIDs Continue to encourage activity as tolerated Assessment & Plan (03/25/2023 3:57 PM CDT): No longer has sicatic nerve pain; but still has low back pain Continues to use [place]-10 3-4 times per day Has good relief with pain with medication Continue [place] 10 mg per day based upon pain Assessment & Plan (07/09/2022 3:32 PM [employer]): Will improving; left hip and sciatic pain has been decreasing, patient is not tolerating better hydrocodone 10 mg q.6 hours p.r.n. Assessment & Plan (02/21/2021 9:59 AM CDT): Has pain in back and bilateral hips Continue to having more difficulty, difficulty with mowing lawn; uses conservative therapy such as ice heat and rounds Without narcotic pain medicine has severe pain that is unbearable Narcotic pain medicine well as patient to perform tasks around the house Patient to continue hydrocodone 7.5 mg q.i.d. Referral placed for pain management to evaluated patient benefit from injections or other interventional therapies to provide a longer duration pain management Lumbar radiculopathy 06/28/2020 Assessment & Plan (07/19/2024 4:27 PM [employer]): Not well controlled; continues to get significant symptoms in left leg, leg feeling cold or asleep On physical exam leg is warm, the chin has sensation coolness, concern for possible nerve injury or compression Patient waiting for MRI Continue hydrocodone 10 mg p.r.n. for severe pain Assessment & Plan (05/27/2024 12:31 PM CDT): Continues to have significant low back pain; including sciatic nerve pain; patient has orders for MRI; will have to be performed at [facility] due to pacemaker; Patient referred to pain management for evaluation and possible interventional treatment options Continue hydrocodone 10 mg q.6 hours p.r.n. for severe pain Assessment & Plan (05/17/2024 2:46 PM CDT): Chronic, continues to have sciatic pain that radiates down legs to feet Has had success with PT in the past Referral to home PT placed Assessment & Plan (03/25/2023 4:00 PM CDT): Stable, patient reports decreased sciatic pain, but continues to have significant low back pain Continue [place] 10 mg 3-4 times daily Assessment & Plan (12/28/2020 5:12 PM CDT): Patient continues to use high-dose pain medicines Continue to encourage patient to seek care at pain clinic Will work with patient to decrease the dose of the [place] given may be worsening symptoms of feeling ill and dizziness especially in combination with Xanax 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 Assessment & Plan (03/14/2022 2:30 PM CDT): Not well controlled, continues to have significant pain in lower back, radiating to right side and right hip Continue hydrocodone 7.5 mg t.i.d. as needed for severe pain Assessment & Plan (10/09/2021 4:34 PM [employer]): Continues to have right-sided back pain with radiation, has continues to bother patient Continue with hydrocodone 7.5 mg b.i.d., gabapentin 100 mg t.i.d. Patient may benefit from physical therapy to help with stretching low back as well as potential stretching of hamstrings and lower extremity muscles Assessment & Plan (06/20/2021 7:46 PM [employer]): Patient continues to have pain in hip and low back that radiates down right side; patient to follow up with pain management for evaluation of steroid injection -encourage patient for gentle exercises including stretches to help relieve tight muscles Assessment & Plan (04/05/2021 9:04 AM CDT): Continues to have severe pains in low back in bilateral hips Not a candidate for surgery given other comorbidities Patient is to follow-up with Dr. palm pain medicines; has had good response to therapies in past At this time will continue hydrocodone 7.5 mg q.i.d. Continue to monitor for side effects from prolonged narcotic therapy Given cardiac disease and concurrent use of oral anticoagulants; patient is unable to tolerate NSAIDs Assessment & Plan (03/28/2021 4:06 PM CDT): Stable, patient continues to have chronic low back pain Continue with hydrocodone 7.5 mg t.i.d. dosing Insomnia secondary to chronic pain 06/28/2020 Assessment & Plan (09/09/2023 3:04 PM [employer]): States she has difficulty sleeping; has tried melatonin with no relief States she is going to try benadryl Hypertension, essential 05/04/2020 Assessment & Plan (04/01/2025 4:48 PM CDT): Stable, well controlled, blood pressure at goal; no chest pain pressure orthostatics Continue diltiazem 240 mg daily, hydralazine 25 mg, lisinopril 20 mg daily, propranolol 20 mg b.i.d. Assessment & Plan (03/21/2025 3:20 PM CDT): Stable continue lisinopril Assessment & Plan (02/27/2025 9:44 PM CDT): Well controlled, blood pressure at goal; no chest pain pressure orthostatics Continue diltiazem 240 mg daily, hydralazine 25 mg, lisinopril 20 mg daily, propranolol 20 mg b.i.d. Assessment & Plan (12/21/2024 3:21 PM CDT): Stable, well controlled, blood pressure at goal, continue propranolol 20 mg b.i.d., lisinopril 20 mg daily, hydralazine 25 mg Assessment & Plan (05/27/2024 12:32 PM CDT): Stable, well controlled, blood pressure at goal; does significant orthostatics Continue lisinopril 20 mg daily, hydralazine 25 mg, diltiazem 240 mg Assessment & Plan (03/02/2024 4:44 PM CDT): Stable, well controlled, blood pressure at goal; no evidence of orthostatics Continue lisinopril 20 mg daily, hydralazine 25 mg b.i.d., diltiazem 240 mg daily Assessment & Plan (10/25/2023 11:46 AM CDT): - continue home diltiazem - continue home lisinopril Assessment & Plan (05/22/2023 3:57 PM CDT): Well controlled, blood pressure at goal; no chest pain or headaches Continue diltiazem 240 mg daily, lisinopril 10 mg daily Assessment & Plan (03/25/2023 4:00 PM CDT): Blood pressure at goal; no chest pain or pressure -no headaches No orthostatics Continue diltiazem 240 mg daily, lisinopril 10 mg daily Assessment & Plan (01/06/2023 3:37 PM CDT): Stable, well controlled; blood pressure at target Continue lisinopril 10 mg daily, Assessment & Plan (09/24/2022 4:18 PM [employer]): Not well controlled, blood pressure elevated, patient reports she just took medications prior to coming to clinic No chest pain or headaches, no orthostatics Continue diltiazem 240 mg daily, lisinopril 10 mg daily, metoprolol 25 mg b.i.d. Assessment & Plan (07/09/2022 3:30 PM [employer]): stable, well controlled; blood pressure at target, no chest pains or headaches No orthostatics Continue acetazolamide 500 mg b.i.d., diltiazem 240 mg daily, metoprolol 25 mg b.i.d., lisinopril 10 mg daily Assessment & Plan (06/28/2022 4:16 AM [employer]): - Continue home lisinopril, diltiazem and metoprolol Assessment & Plan (03/14/2022 2:28 PM CDT): Stable, well controlled; blood pressure at target today with an orthostatics or chest pain Continue diltiazem 240 mg daily Assessment & Plan (12/25/2021 1:36 PM CDT): Stable, well controlled; continue blood pressure medicines Continue diltiazem 240 mg daily, lisinopril 20 mg daily Assessment & Plan (10/09/2021 4:32 PM [employer]): Patient has episodes of not feeling well; unclear etiology, may be related to sick sinus syndrome versus side effects of medication verses other underlying disease Today blood pressure at 140/90, just at target , given age would not advance medications Continue diltiazem 240 mg daily, lisinopril 20 mg daily Assessment & Plan (04/05/2021 9:07 AM CDT): Stable, well controlled Continue hydrochlorothiazide 12.5, lisinopril 20 mg, for blood pressure control Assessment & Plan (10/04/2020 2:50 PM [employer]): Today blood pressure at target Generalized anxiety disorder 05/04/2020 Assessment & Plan (05/17/2024 2:42 PM CDT): Chronic, generally stable but not well controlled Lives alone, has no one to help talk her down from situations Referral to ACO for in home assistance Assessment & Plan (03/25/2023 4:00 PM CDT): Doing well, not too bad for patient continue to monitor Assessment & Plan (01/06/2023 3:38 PM CDT): Stable, generally well controlled, tries to spend out time outdoors Assessment & Plan (09/24/2022 4:19 PM [employer]): Stable, well controlled; no need for Xanax at this time Continue to encourage management generalized anxiety Assessment & Plan (07/09/2022 3:31 PM [employer]): Stable, well controlled; continue Xanax p.r.n. Assessment & Plan (06/28/2022 4:16 AM [employer]): - Resume home venlafaxine and mirtazapine. Assessment & Plan (10/09/2021 4:35 PM [employer]): Stable, varies day-to-day; worse with long-term and poorly-controlled pain; patient also reports decreased vision right eye in headaches which are concerning for patient and worsened anxiety Will continue with Xanax up to t.i.d. for anxiety, determine if patient benefit from SSRI for headache and anxiety Assessment & Plan (04/05/2021 9:06 AM CDT): Stable, occasional use of 1/2 tablet of Xanax during the day Continue fluoxetine 10 mg and low-dose Xanax p.r.n. At this time patient is not interested in counseling Patient does report decreased desire as well as ability to cook due to chronic pain May represent early signs of depression; impacting patient diet Will continue to monitor Assessment & Plan (03/28/2021 4:06 PM CDT): Stable well controlled, continue fluoxetine 10 mg daily Assessment & Plan (02/21/2021 9:57 AM CDT): Did not tolerate Remeron well due to excessive sedation Start fluoxetine 10 mg today Continue to assess management of depression and G 80 Assessment & Plan (12/28/2020 5:13 PM CDT): Will start mirtazapine 7.5 in order to help with appetite as well as to help with anxiety and insomnia Assessment & Plan (09/05/2020 1:13 PM [employer]): Well controlled, occasinal panic attacks, patient on xanax, will continue as needed -will evaluate need to decrease as patient has fatigue and is on chronic opioid therapy Generalized osteoarthritis 05/04/2020 Assessment & Plan (09/05/2020 1:14 PM [employer]): Not well controlled, has pain in multiple joints, decreased ability to perform some tasks during winter; is active during summer -continue with pain management clinic in order to manage chronic pain Hypothyroidism 05/04/2020 Assessment & Plan (04/01/2025 4:46 PM CDT): Not well controlled, mostly recent TSH was elevated, continues to have low energy levels; will reassess since levothyroxine was adjusted; continue to adjust levothyroxine to get appropriate thyroid levels Assessment & Plan (02/27/2025 9:45 PM CDT): Not well controlled; low thyroid level hormones; may be contributing to low energy levels Increase levothyroxine to 125 mcg daily Assessment & Plan (12/21/2024 3:21 PM CDT): Stable, not well controlled, TSH elevated with normal T3 and T4; will continue to monitor closely, continue levothyroxine 112 mcg daily Assessment & Plan (10/07/2024 3:06 PM [employer]): Stable, improving; patient has improved energy levels, however has noted decreased weight since starting higher dose of levothyroxine; recheck thyroid levels today; adjust medication to balance weight loss and energy At this time continue levothyroxine 112 mcg daily Assessment & Plan (09/20/2024 4:31 PM [employer]): Not well controlled, patient continues to have significant fatigue, last TSH demonstrated high levels of 31 with low T3 and T4 Mild changes to creatinine Levothyroxine increased to 112 mcg daily; will recheck in 4-6 weeks; encourage activity as tolerated Assessment & Plan (03/02/2024 4:44 PM CDT): Stable, generally well controlled; tolerating new dose well Continue levothyroxine 100 mcg daily Assessment & Plan (10/24/2023 11:39 AM CDT): - continue home synthroid Assessment & Plan (09/26/2023 2:37 PM [employer]): - Continue home synthroid Assessment & Plan (05/22/2023 3:55 PM CDT): Not well controlled, most recent TSH was elevated with low T4; patient reports generally good energy, able to care for regards; patient going on weekend trip this weekend Recheck TSH with T4; continue to adjust levothyroxine as needed Assessment & Plan (03/25/2023 3:58 PM CDT): Last TSH elevated at 42; low T3 and t4 Patient reports her energy levels are good and she is gaining weight (desired) would like to stay at current dose Continue levothyroxine 50 mcg daily; continue to closely monitor TSH Assessment & Plan (09/24/2022 4:19 PM [employer]): TSH elevated, normal T4; patient reports improved energy levels Given sensitivity to prior changes, continue levothyroxine 75 mcg daily Assessment & Plan (07/16/2022 3:30 PM [employer]): Reports feeling sick and nauseous all the time with low energy levels and poor appetite Will check TSH today continue levothyroxine 75 mcg daily Assessment & Plan (07/09/2022 3:30 PM [employer]): Stable, patient reports improving energy, though continues to have a loss Will recheck TSH today Continue levothyroxine 75 mcg daily, adjust based upon TSH levels measured Assessment & Plan (03/14/2022 2:29 PM CDT): Stable, patient is most recently on levothyroxine 50 mcg daily Patient reports some unexplained weight loss; reviewed recent visit; patient was approximately 10 lb heavier about 8 months ago, unclear if weight changes or due to altered doses levothyroxine Will recheck TSH today; continue follow-up other potential causes of weight loss Continue levothyroxine 50 mcg daily Assessment & Plan (01/11/2022 4:03 PM CDT): Stable, improving; patient reports she has been taking 50 mcg daily; patient did not start higher doses prescribed by Endocrinology Will recheck TSH today; continue levothyroxine 50 mcg daily, will adjust based upon lab results Patient reports signs symptoms of fatigue and malaise have improved; patient reports she has also started elderberry drink for treatment which may have contributed Will continue to monitor Assessment & Plan (12/25/2021 1:35 PM CDT): Not well controlled, patient reports she had not been taking her levothyroxine for several months; encouraged patient to restart levothyroxine given patient has been off medication for several weeks, will restart at 50 mcg daily, and increase as tolerated Will recheck in approximately 4-6 weeks patient has follow-up scheduled with Endocrinology Assessment & Plan (12/11/2021 2:34 PM CDT): Patient with hypothyroidism for many years Patient had very high TSH of 133 on 12/01/21 with low free T4 of 0.5 This is probably due to non-compliance with medication plus she is on low dose of 50 mcg/day Plan: Increase Levothyroxine to 75 mcg/day Stressed on compliance with medication Check TSH in 2 month. Assessment & Plan (10/09/2021 4:34 PM [employer]): Stable, continues to have elevated TSH while on increasing doses of levothyroxine Refer to endocrinology for further evaluation to determine if other changes medication required Assessment & Plan (04/05/2021 9:07 AM CDT): Stable, TSH at target Continue levothyroxine 88 mcg daily Assessment & Plan (03/28/2021 4:03 PM CDT): Stable, well controlled Last TSH was within normal limits Will continue levothyroxine 80 mcg daily Recheck TSH at follow-up appointment Assessment & Plan (09/05/2020 1:15 PM [employer]): Stable, wel controlled, given patient's generalized fatigue will check TSH today -continue on levothyroxine at 75 ucg until knowing lab results Atrial fibrillation 05/04/2020 Overview (01/08/2023): [employer] pacemaker Assessment & Plan (02/27/2025 9:44 PM CDT): Stable, well controlled, rate controlled Continue propranolol 20 mg b.i.d., Eliquis 5 mg b.i.d. Assessment & Plan (12/21/2024 3:22 PM CDT): Stable, regular rate and rhythm; pacemaker in place; continue Eliquis 5 mg b.i.d. Assessment & Plan (05/27/2024 12:32 PM CDT): Stable, well controlled; rate controlled with irregular rhythm Continue diltiazem 240 mg daily, Eliquis 5 mg b.I.d. Assessment & Plan (12/17/2023 4:45 PM CDT): Stable, well controlled, rate controlled today Continue Eliquis 5 mg daily; diltiazem 250 mg daily Assessment & Plan (10/25/2023 11:46 AM CDT): - A/C: heparin drip -> eliquis - rate control -> home dilt Assessment & Plan (10/01/2023 11:34 AM [employer]): #Atrial fibrillation #Sick sinus syndrome s/p cardiac pacemaker - (07/2023) TTE: normal bivent function, EF 55-60%, neg bubble study, no KAYCE thrombus - (07/2023) Device check: No episodes, normal device function - Will defer device interrogation given mechanical fall - Home Eliquis [HELD], s/p Kcentra at OSH (09/24) - Home diltiazem- resumed at discharge - Hold Eliquis until follow up with NSGY Assessment & Plan (05/22/2023 3:56 PM CDT): Well, irregular heartbeats noted on physical exam; continue diltiazem 240 mg daily, Eliquis 2.5 mg b.i.d. Assessment & Plan (03/25/2023 3:59 PM CDT): Rate is appropriate; no bruising or bleeding Continue apixaban 2.5 mg b.i.d., diltiazem 240 mg daily Assessment & Plan (09/24/2022 4:17 PM [employer]): Stable, generally well controlled, rate controlled no palpitations Continue apixaban 2.5 mg b.i.d., diltiazem 240 mg daily, metoprolol 25 mg b.i.d. Assessment & Plan (07/09/2022 3:27 PM [employer]): Stable, no significant issues Continue Eliquis 2.5 mg b.i.d., exam 240 mg daily Assessment & Plan (03/14/2022 2:28 PM CDT): Stable, generally well controlled; rate controlled Patient has some petechiae on bilateral lower extremities; CBC reviewed from recent blood draw, all labs within normal limits including platelets Petechiae may be secondary to Eliquis verses other potential causes Will continue to monitor Assessment & Plan (10/09/2021 4:33 PM [employer]): Stable, rate controlled today, heart rate 61 Unclear potential causes of symptoms, the patient in regular rhythm today Continue diltiazem for rate control, apixaban 5 mg b.i.d. for anticoagulation Assessment & Plan (03/28/2021 4:05 PM CDT): Stable well controlled, rate controlled on diltiazem 240 mg daily, on Eliquis 5 mg b.i.d. for thrombus prevention Assessment & Plan (12/28/2020 5:11 PM CDT): Rate controlled, continues on apixaban 5 mg b.i.d. Continue diltiazem 240 mg Given patient also has sick sinus syndrome may be source of dizziness given patient does not have stable heart rate Will continue to monitor Assessment & Plan (09/05/2020 1:17 PM [employer]): Stable, rate controlled, no evidence of bleeding on current dose of Eliquis. Primary osteoarthritis of left knee 09/17/2018 Spinal stenosis 11/15/2014 Overview (01/08/2023): Lumbar stenosis Has seen pain mgment Assessment & Plan (02/27/2025 9:44 PM CDT): Not well controlled; continues to have significant low back pain; pain radiating down legs Patient to continue hydrocodone 10 mg prn for severe pain; lidocaine patches PRN for relief Assessment & Plan (01/19/2025 1:40 PM CDT): Having increased numbness and cold sensation in L side. Was not taking Duloxetine like ordered. Will continue to monitor. Will be seeing neurology soon. 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 Assessment & Plan (10/07/2024 3:05 PM [employer]): Continues to have significant low back pain; now referred some pain originating in left rib and radiating; may be secondary to fall verses neuropathy; due to patient's age and fragility; not a candidate for spinal surgery Will continue with physical therapy to help with pain management and strengthening Assessment & Plan (08/12/2024 1:18 PM [employer]): Continues to have symptoms of left leg neuropathy; has chronic back pain, leg starts to feel cold and develops pain in left arm and left-sided chest Has to sit down due to fatigue Patient is scheduled for MRI of the lumbar spine to evaluate for spinal canal stenosis or foraminal stenosis; will require MRI at [facility] due to placement of pacemaker Continue hydrocodone 10 mg q.i.d. for pain relief Assessment & Plan (03/02/2024 4:43 PM CDT): Continues to have significant low back pain; some limitations Continue hydrocodone 10 mg p.r.n. Assessment & Plan (09/09/2023 3:04 PM [employer]): Not well controlled; continues to have low back pain States the sciatic pain has resolved Discussed chiropractor Continue Hydrocodone 10 mg QID and Lidocaine patches as needed Assessment & Plan (05/22/2023 3:53 PM CDT): Not well controlled, continues to have significant low back pain; no longer having sciatic nerve pain that was causing significant dysfunction distress Has some relief with hydrocodone; limits activities Continue hydrocodone 10 mg q.i.d. p.r.n. Continue Lidoderm p.r.n. for severe pain Assessment & Plan (09/05/2020 1:10 PM [employer]): Not well controlled, patient has chronic pain in low back radiating to hip; not a candidate for surgery given extensive disease; patient has relief of low back pain with steroid injections -patient to continue to follow-up with pain management; has good relief with injections; will continue to monitor. Spondylolisthesis 11/15/2014 Overview (11/09/2016): Spondylolisthesis at L4-L5 level Assessment & Plan (05/10/2022 3:14 PM CDT): Continues to have severe central canal stenosis at L3-L4, L4-L5; advanced facet hypertrophy Continues to have low back pain after fall; no evidence of any acute injury in low back, however has radiating pain Patient reports no relief with hydrocodone 10 mg q.i.d. Difficulty with sleeping, has tried heating pads -pain radates down to ankle Nuclear senile cataract 09/13/2014 Diverticulosis large intesti ne w/o perforation or abscess w/o bleeding 12/11/2010 Assessment & Plan (02/21/2021 9:58 AM CDT): Continue to manage constipation, use senna and high-fiber diet Hyperlipidemia 12/11/2010 Assessment & Plan (03/21/2025 3:20 PM CDT): Recommend statin therapy. Assessment & Plan (09/24/2022 4:17 PM [employer]): Lipids are elevated; allergy to atorvastatin Continue rosuvastatin 5 mg daily, Zetia 10 mg daily Assessment & Plan (07/09/2022 3:28 PM [employer]): Stable, well controlled; elevated total and LDL cholesterol Continue to monitor, encourage fat high-fiber diet Assessment & Plan (10/04/2020 2:52 PM [employer]): Discussed results with patient and family, she has started high fiber diet; Will start statin therapy today; patient reports some side effects previously, but was vague and may have been more related to what she was told could happen Assessment & Plan (09/05/2020 1:14 PM [employer]): -unclear, not on any medicine, will check lipid panel today Sick sinus syndrome Assessment & Plan (12/21/2024 3:21 PM CDT): Stable, pacemaker in place; appropriate rate; continue diltiazem 240 mg daily, Eliquis 5 mg b.i.d. Assessment & Plan (03/02/2024 4:43 PM CDT): Stable, well controlled; pacemaker in place; continues to have some tiredness and weakness Will continue to monitor closely Continue apixaban 5 mg b.i.d. Assessment & Plan (09/26/2023 2:35 PM [employer]): #Atrial fibrillation #Sick sinus syndrome s/p cardiac pacemaker - See Atrial fibrillation Assessment & Plan (05/22/2023 3:54 PM CDT): Pacemaker in place, operating well; patient continues to have some irregular heartbeats Continue to follow with Cardiology Assessment & Plan (03/25/2023 3:57 PM CDT): , pacemaker in place; no episodes of syncope Continue to monitor heart rate and follow recommendations per Cardiology Assessment & Plan (06/28/2022 4:19 AM [employer]): S/p pacemaker placement on 10/2020. - Continue home diltiazem, lisinopril and metoprolol. Assessment & Plan (03/28/2021 4:04 PM CDT): Stable, well controlled; the patient reports she has had continued fatigue and decreased energy since pace maker placement -will continue to monitor, decrease cardiac response may cause patient to become fatigued easily Assessment & Plan (02/21/2021 10:00 AM CDT): Stable, reviewed stress test with patient Patient is normal myocardial perfusion, LVEF is greater than 50% Continue to manage heart rate, blood pressure in monitor aneurysm Assessment & Plan (11/14/2020 8:54 AM CDT): Recent pacemaker placement; continues to have fatigue; will check TSH today -improving, may be some post-surgical fatigue -continue to monitor and will adjust medications as needed Assessment & Plan (10/04/2020 2:50 PM [employer]): Reviewed results of Holter with monitor, discussed bradycardia and symptoms it could produce -patient scheduled for pacemaker placement Assessment & Plan (09/05/2020 1:13 PM [employer]): Has labile heart rates, known atrial fibrillation; continue with low dose metoprolol and dilitiazem for rate control Resolved Problems Problem Noted Date Diagnosed Date Resolved Date Traumatic hematoma of right hip 04/20/2024 05/27/2024 Assessment & Plan (04/20/2024 3:57 PM CDT): Large hematoma on right hip; no evidence of worsening bleeding; encourage use of heat for resolution Will continue to monitor for risk of other falls Open comedone 03/08/2024 04/20/2024 Infected cyst of skin 02/24/20242024 Acute saddle pulmonary embol ism, unspecified whether acute cor pulmonale present 10/21/202304/04 Assessment & Plan (12/17/2023 4:44 PM CDT): Stable, resolving; patient had discontinued anticoagulation secondary to recent hemorrhagic stroke Restarted Eliquis 5 mg b.i.d. Assessment & Plan (10/25/2023 11:46 AM CDT): Presented with dyspnea and hypoxia. Trop 146-->407-->307. CTPE: Saddle PE with near complete occlusion of R main PA and near-complete occlusion of R lobar artery, R heart strain. LED: bilateral peroneal veins and L popliteal vein. PERT activated in ED: no-go for thrombectomy per vascular surgery. -AC: eliquis started 10/23 -NSGY: repeat hct if exam change, ok for oral a/c, will need repeat HCT 4-6 weeks in clinic (around November 26). Discharge planning issues 09/29/2023 Assessment & Plan (10/01/2023 11:35 AM [employer]): -09/29-09/30 Stable for [facility] Dis[facility] Intraparenchymal hematoma of brain 09/26/2023 03/31/2025 Assessment & Plan (09/26/2023 2:30 PM [employer]): #IPH (evolving hemorrhagic contusion), SDH, SAH - See Subdural hematoma Hemorrhagic shock 09/26/2023 05/20/2024 Assessment & Plan (09/30/2023 9:12 AM [employer]): - Resolved Acute blood loss anemia (ABLA) 09/26/2023 04/20/2024 Assessment & Plan (09/30/2023 9:11 AM [employer]): #ABLA (Acute Blood Loss Anemia) iso chronic anemia (Bl Hgb 11) #Subcutaneous lumbar soft tissue hematoma 2/ mechanical fall (11.4 x 25.4 x 3.5 cm) - (09/25) 2 units pRBC - Compression as able with appropriate turning of patient for offloading - CBC q12hr - Transfuse for goal Hgb > 8, Hgb stable Subdural hematoma, SAH, IPH 09/25/2023 03/31/2025 Assessment & Plan (10/26/2023 10:14 AM CDT): Had traumatic fall in July with admission to OSH w/ SDH, for which home a/c was stopped. Head CT 09/25: Small SDH along anterior L falx and midline falx with small areas of hemorrhage in L frontal lobe along dorsal aspect of corpus collosum. Head CT 10/19: interval decrease in SDH along L cerebral convexity, resolution of components involving falx and L tentorial leaflet, prior SAH no longer seen. Evolving blood products in L inferior frontal lobe from prior IPH, no new hemorrhage/mass effect in this area. 10/22 CTA: Improving hyperdensity in the right parietal lobe consistent with decreasing contrast staining with persistent surrounding hypoattenuation likely representing edema in the setting of evolving infarct. Unchanged sequelae of prior left anterior inferior frontal lobe intracranial hemorrhage and developing encephalomalacia. - outpatient NSGY follow up with CT in November Assessment & Plan (10/01/2023 11:35 AM [employer]): #IPH (evolving hemorrhagic contusion), SDH, SAH - (09/25, 6am) CT: mild increased size of intraparenchymal blood products in the left inferior frontal lobe with mildly increased surrounding vasogenic edema - (09/25, 12pm) CT: unchanged intraparenchymal hemorrhage, unchanged bilateral cerebral convexity subdural hematomas. Unchanged subarachnoid hemorrhage - (09/26) CT: unchanged findings - Neurosurgery consulted: - Hold home Eliquis, given K centra on 09/25 - q4hr neurovascular checks - Keppra 250mg BID x 7 days - Do not resume Eliquis until cleared by NSGY at follow up Follow Up:outpatient clinic for 1 month from now. Acute bacterial endocarditis 07/25/2023 04/20/2024 Assessment & Plan (08/22/2023 2:10 PM [employer]): Stable, improving; patient continues with IV antibiotics; somewhat irritated by PICC line No evidence of infiltration of PICC line Source likely confirmed to be pacemaker leads; complete course of antibiotics continued follow-up with Cardiology for long-term management Bacteremia 07/21/2023 04/20/2024 Hyperkalemia 07/21/2023 04/20/2024 Acute hypoxic respiratory failure 07/21/2023 04/20/2024 Pneumonia of right middle lo be due to infectious organism 07/19/2023 11/19/2024 Assessment & Plan (08/22/2023 2:11 PM [employer]): Still improving; patient reports dyspnea is improving; being treated for underlying pneumonia ; will continue to monitor; after completion will re-evaluate if further imaging as needed Closed head injury 01/06/2023 Urinary tract infection in female 01/06/2023 09/09/2023 Seroma due to trauma 09/24/2022 024 Assessment & Plan (09/24/2022 4:20 PM [employer]): Has been present for 6-12 months; no resolution of seroma versus hematoma Refer to general surgery for possible drainage Assessment & Plan (09/24/2022 2:59 PM [employer]): It is possible that the patient has a persistent seroma or hematoma from the trauma over a year ago. I however would not expect this to be causing underlying pain. Also I would expect it to slowly beginning smaller which does not seem to be the case. I am going to order a CT of the lower extremity to better characterize this as well as to look at the bone to see if there is any other reasons for the persistent pain or swelling of the leg. We will then call her to discuss further once the imaging results have been returned. Pneumonia due to gram-positive bacteria 07/07/2018 09/05/2020 Pulmonary granuloma 07/06/2018 02/28/20 25 Assessment & Plan (09/26/2023 2:36 PM [employer]): Calcified granuloma in RML - On RA SpO2 goal >92% - Pulmonary hygiene, IS, PT/OT Assessment & Plan (03/14/2022 2:30 PM CDT): Lung nodule noted on recent CT for thoracic aneurysm; will repeat lung scan to evaluate resolution of symptoms Assessment & Plan (02/21/2021 9:59 AM CDT): Reviewed CT imaging, stable Community acquired pneumonia of right upper lobe of lung 10/04/2020 Encounters Date Type Department Care Team Description 06/25/2025 Nurse Triage [facility] [address] [id number] Jose Leon MD 06/20/2025 Nurse Triage [facility] [address] [phone] Jose Leon MD 06/20/2025 Telephone [facility] [address] [phone] Jose Leon MD Appointment Request 06/10/2025 Telephone [facility] [address] [phone] Jose Leon MD Med Refill 05/19/2025 3:00 PM CDT Office Visit [facility] [address] [phone] Jose Leon MD Uncomplicated opioid dependence (HCC) (Primary Dx); Post-menopause; Solar lentigo; Neuropathy of both feet; Stasis dermatitis of both legs 05/11/2025 Telephone [facility] [address] [phone] Jose Leon MD Appointment Request 05/10/2025 8:00 AM CDT Ancillary Procedure [employer] [address] [place] [phone] Pacemaker; Sick sinus syndrome (HCC); Paroxysmal atrial fibrillation (HCC) 05/10/2025 Orders Only [employer] [address] [place] [phone] Yessica Morris MA Sick sinus syndrome (HCC) (Primary Dx); Paroxysmal atrial fibrillation (HCC); Pacemaker; Pacemaker reprogramming/check 05/06/2025 Telephone [facility] [address] [phone] Jose Leon MD 05/02/2025 Telephone [facility] [address] [phone] Jose Leon MD 04/25/2025 Telephone [facility] [address] [phone] Jose Leon MD Symptom Based Call 04/19/2025 Telephone [facility] [address] [facility] [address], [address] [place] [id number] Mirtha Trejo B.A. 04/13/2025 Telephone [facility] [address] [phone] Jose Leon MD 04/12/2025 Telephone [facility] [address] [phone] Jose Leon MD 04/11/2025 Telephone [facility] [address] [address] Jose Leon MD 04/08/2025 Telephone [facility] [address] [phone] Jose Leon MD 04/07/2025 Telephone [facility] [address] [phone] Jose Leon MD Additional Services Or Orders 04/06/2025 Telephone [facility] [address] [phone] Jose Leon MD 04/05/2025 Results Follow-Up [facility] [address] [phone] Jose Leon MD Urinalysis reflex to microscopic and culture Urine, clean voided, Urinalysis, microscopic only 04/05/2025 [facility]phone [facility] [address] [address] Jose Leon MD Test Results 04/01/2025 2:15 PM CDT - 04/01/2025 11:59 PM CDT Hospital Encounter [facility] [address] [place] [address] Dysuria Discharge Disposition: Discharge to home or self care 04/01/2025 Telephone [facility] [address] [place] [address] Jose Leon MD Medical Records Request 04/01/2025 Telephone [facility] [address] [facility] [address] [place] [address] Snow Smiley RN 03/31/2025 2:00 PM CDT Office Visit [facility] [address] [place] [address] Jose Leon MD Chronic right-sided low back pain with right-sided sciatica (Primary Dx); Acquired hypothyroidism; Neuropathy of both feet; Sarcopenia; Dysuria; Uncomplicated opioid dependence (HCC); Drug-induced constipation; Hypertension, essential from Last 3 Months Immunizations Immunization Administration Dates Next Due Influenza, Unspecified 05/19/2025(Deferr ed: Patient Refused),01/19/2025(Deferred: Patient Refused),01/19/2025(Deferred: Patient Refused),10/07/2024(Deferred: Patient Refused),05/27/2024(Deferred: Patient Refused),05/17/2024(Deferred: Patient Refused),04/04/2024(Deferred: Patient Refused),04/04/2024(Deferred: Patient Refused),09/23/2023(Deferred: Patient Refused),05/22/2023(Deferred: Patient Refused),05/04/2023(Deferred: Patient Refused),04/04/2023(Deferred: Patient Refused),09/20/2022(Deferred: Patient Refused),06/21/2022(Deferred: Patient Refused),04/04/2022(Deferred: Patient Refused),04/04/2022(Deferred: Patient Refused),10/05/2021(Deferred: Patient Refused),06/20/2021(Deferred: Patient Refused),05/30/2021(Deferred: Patient Refused),04/16/2021(Deferred: Patient Refused),03/28/2021(Deferred: Patient Refused),02/14/2021(Deferred: Patient Refused),09/05/2020(Deferred: Patient Refused),08/04/2020(Deferred: Patient Refused),08/04/2020(Deferred: Patient Refused),08/04/2020(Deferred: Patient Refused),05/04/2020(Deferred: Patient Refused),08/04/2019(Deferred: Patient Refused),08/04/2019(Deferred: Patient Refused),08/04/2019(Deferred: Patient Refused) Pneumococcal Conjugate PCV 13 05/22/2023 (Deferred: Patient Refused),08/04/2019(Deferred: Patient Refused) Pneumococcal Polysaccharide PPV23 12/11/2011 Tdap 09/25/2023 Surgical History Surgery Date Site/Laterality Comments KNEE ARTHROPLASTY Bilateral Knee replacement INSERT / REPLACE / REMOVE PACEMAKER 10/25/2020 insert pacemaker CATARACT EXTRACTION W/ INTRAOCULAR LENS IMPLANT Bilateral OTHER SURGICAL HISTORY 06/11/2022 eye surgery due to elevated pressure MASS EXCISION 02/25/2024 soft tissue abdomen Medical History Medical History Date Comments Osteoarthritis Osteoarthritis Hypercholesterolemia High choles terol Chronic coronary artery disease Coronary artery disease Hypertension Hypertension Hiatal hernia Hypothyroidism Atrial fibrillation (HCC) Choking episode happens often GERD (gastroesophageal reflux disease) Thoracic aortic aneurysm SSS (sick sinus syndrome) ([facility]) Osteoporosis Chronic pain disorder Dizzy Stroke ([facility]) PONV (postoperative nausea and vomiting) Glaucoma Pneumonia 08/2024 Fungal infection 09/30/2024 mouth Family History Medical History Relation Name Comments Cancer Brother 1 Richard lung Diabetes Brother 1 Richard Stroke Brother 2 Jesus Heart attack Father Heart disease Father Cardiovascular disease; Hypertension Mother Stroke Mother Stroke; Stroke Sister 1 Eaton Edema Sister 2 Priyanka Hypertension Sister 2 Priyanka bone problems Sister 2 Priyanka Relation Name Status Comments Brother 1 Richard Brother 2 Jesus Father Mother Sister 1 Renetta Sister 2 Priyanka Alive Social History Tobacco Use Types Packs/Day Years Used Date Smoking Tobacco: Never Smokeless Tobacco: Never Tobacco Cessation:Counseling Given: Not Answered Alcohol Use Standard Drinks/Week Comments No 0 [...] materials from doctor or pharmacy Never 12/02/2024 [facility] Utilities Answer Date Recorded In the past 12 months has [facility] [employer], gas, oil, or water Naytev threatened to shut off services in your [...] often do you attend chur ch or samaritan services? Never 06/07/2024 Do you belong to any clubs o r organizations such as christian groups, unions, fraternal or athletic groups, or [...] staff should administer the PHQ-9) 2 05/19/2025 [facility] - Occupational Stress Questionnaire Answer Date [...] place to sleep or slept in a fci (including now)? No 10/21/2023 Housing Stability Vital Sign Answer Shashi e Recorded In the last 12 months, was t here a time when you were not able to pay the mortgage or rent on time? No 06/07/2024 In the past 12 months, how m any times have you moved where you were living? 0 06/07/2024 At any time in the past 12 [facility], were you homeless or living in a fci (including now)? No 06/07/2024 Personal Safety Answer Date Recorded Have you ever been in or are you currently in a harmful physical or emotional relationship or is someone making you feel afraid or unsafe? Denies 02/22/2025 Comments No Sex and Gender Information Value Date Recorded Sex Assigned at Not on file Legal Sex Female 7:27 PM [employer] Gender Identity Not on file Sexual Orientation Not on file Last Filed Vital Signs Vital Sign Reading Time Taken Comments Blood Pressure 136/84 05/19/2025 3:05 PM CDT Pulse 65 05/19/2025 2:47 PM CDT Temperature 36.9 C (98.4 F) 05/19/2025 2:47 PM CDT Respiratory Rate 20 05/19/2025 2:47 PM CDT Oxygen Saturation 95% 05/19/2025 2:47 PM CDT Inhaled Oxygen Concentration - - Weight 54 kg (119 lb) 05/19/2025 2:47 PM CDT Height 152.4 cm (5') 05/19/2025 2:47 PM CDT Body Mass Index 23.24 05/19/2025 2:47 PM CDT Plan of Treatment Health Maintenance Due Date Last Done Comments Zoster Vaccine (1 of 2) 1990 Osteoporosis Screening-Bone Density Scan 12/10/2024 12/10/2022, 09/22/2020 Well Visit 65+ 05/27/2025 05/27/2024, 05/04, 06/21/2022 Depression Screening 05/19/2026 05/19/2025, 03/31/2025, 02/16/2025, Additional history exists Fall Risk Assessment 05/19/2026 05/19/2025, 01/19/2025, 01/06/2025, Additional history exists DTaP/Tdap/Td Vaccine (2 - Td or Tdap) 09/25/2033 09/25/2023 Pneumococcal vaccine 65+ Discontinued 12/11/2011 Hepatitis B Screening Completed 03/18/2024 Influenza Vaccine Discontinued Goals Goal Patient Goal Type Associated Problems Recent Progress Patient-Stated? Author JIGAR General Goal - Patient schedules and keeps appointments with all recommended providers ACO Care Management On track(07/08 11:06 AM [employer]) Monique Kemp, RN Note: Problem: Potential for medical complications [...] ACO Care Management On track(07/08 11:06 AM [employer]) Monique Fong, RN Note: Problem: At Risk [...] SW if appropriate and patient is agreeable. Medical Devices Implanted Type Area Drill Runner Device Identifier Shelf Expiration Date Model / Serial / Lot [employer] 2088tc/52 Tendril Sts 6fr 52cm Is-1 Connector Active Fixation Bipolar Soft - [id number] - [id number] Implanted:Qty: 1 on 10/25/2020 by Bharti Armenta MD at [facility] Lead [employer] [id number] 09/03/2022 2088TC/52 / [id number] / [employer] [id number] Assurity Mri [id number] Chamber Is-1 Connector Thk6mm Pacemaker - [id number] - [id number] Implanted:Qty: 1 on 10/25/2020 by Bharti Armenta MD at [facility] Pacemaker [employer] [id number] 03/03/2022 [id number] / [id number] / [employer] Ahmed Flexible Plate .635mm .305mm [id number] 25mm Valve Thinner Fp7 - [id number] - [id number] Implanted:Qty: 1 on 06/17/2022 by Mehul Clay MD at [facility] Advanced Medicine Right: Eye [employer] [id number] 04/12/2024 7 / [id number] / [id number] [employer] Tutoplast Iopatch 1x.6cm Dehydrate Processed Allograft Graft Soft 72442 - [id number] - [id number] Implanted:Qty: 1 on 06/17/2022 by Mehul Clay MD at [facility] Advanced Medicine Right: Eye [employer] [id number] 12/01/2026 [id number] / [id number] / [id number] Procedures Procedure Name Priority Date/Time Associated Diagnosis Comments DEVICE CHECK - REMOTE Routine 05/10/2025 7:20 AM CDT Pacemaker Sick sinus syndrome (HCC) Paroxysmal atrial fibrillation (HCC) URINALYSIS, MICROSCOPIC ONLY Routine 04/01/2025 2:57 PM CDT Dysuria URINALYSIS AND REFLEX TO MICROSCOPIC AND CULTURE Routine 04/01/2025 2:57 PM CDT Dysuria DEXA AXIAL SKELETON BONE DENSITY 1 OR MORE SITES Schedule Routine, Read Routine (OP Routine) 12/10/2022 2:14 PM CDT Age-related osteoporosis without current pathological fracture from Last 3 Months or Most Recently Relevant to Health Maintenance Results * DEVICE CHECK - REMOTE (05/10/2025 7:20 AM CDT) Anatomical Region Laterality Modality Other Narrative 05/11/2025 2:06 PM CDT Images from the original result were not included. 05/10/2025 [place] quarterly remote device check NOTE The following shows snippets from the complete quarterly report. The complete report in its entirety is attached to this Result Text in Service Porter. Presenting EGM Last in-office check 02/19/2024 (w/Tra Craig) Next in-office check-not scheduled (patient no showed 11/25/2024 appt. w/device check) SC PPM, implanted 10/25/2020 Battery longevity = 7.6-8.3 yrs AT/AF burden N/A RVp 76% Reviewed By Kirsten Sheldon RN BSN at 12:15 PM Review and Recommendations below (please forward an in-basket message to your MA if check requires attention) ATTESTATION I have reviewed the device interrogation report associated with this encounter in detail. I agree with the documentation recorded/scanned into the electronic medical record. Recommendations: Continue current device follow-up. Bharti Armenta MD Bharti Armenta MD [facility] [place] OCEDURES Final Result * (ABNORMAL) Urinalysis reflex to microscopic and culture Urine, clean voided (04/01/2025 2:57 PM CDT) Color, ur Yellow Yellow Comment:Testing performed by : [facility], [address] [place] [address], [place]., [address] Clarity, ur Clear Clear MEET ROJAS (TIFFANI) Comment:Testing performed by : [facility], [address] [place] [address]., [address] Specific gravity, ur 1.025 1.003 - 1.030 MEET INTERIANO (TIFFANI) Comment:Testing performed by : [facility], [address] [place] [address], [place]., [address] pH, urine 6.0 [facility] (TIFFANI) Comment: Interpretive Data U rine pH is affected by diet, medications, systemic acid-base disturbances, and renal tubular function. pH may affect urinary stone formation. For example, urine pH below 6.0 may help reduce the tendency for calcium phosphate stones and pH greater than 6.0 may reduce the tendency for uric acid stone formation. Source: [facility] Universal Devices Current Interpretive Data was last revised on 2017 Testing performed by: [address] [address] Protein, ur ql Negative Negative [facility]NE R [facility] (TIFFANI) Comment:Testing performed by : [address], [address] Glucose, ur ql Negative Negative [facility] (TIFFANI) Comment:Testing performed by : [address], [address] Ketones, ur Negative Negative CERNER A (TIFFANI) Comment:Testing performed by : [address], [address] Bilirubin, ur Negative Negative [facility] (TIFFANI) Comment:Testing performed by : [address], [address] Blood, ur Negative Negative [facility] (TIFFANI) Comment:Testing performed by : [address], [address] Urobilinogen, ur <2.0 <2.0 mg/dL [facility] (TIFFANI) Comment:Testing performed by : [address], [address] Nitrite, ur Negative Negative CERNER A (TIFFANI) Comment:Testing performed by : [address], [address] Leukocyte esterase, ur 1+(A) Negative [facility] (TIFFANI) Comment:Testing performed by : [address], [address] UA reflex comment Reflex to microscopic UA will be performed. [facility] (TIFFANI) Comment:Testing performed by : [address], [address] Urine, clean voided 04/01/2025 2:57 PM CDT 04/01/2025 7:34 PM CDT us Jose Leon MD LAB MICROBIOLOGY - GENERA L ORDERABLES Final Result MEET INTERIANO ([place]) [address] [facility] Department [place] [address] * (ABNORMAL) Urinalysis, microscopic only (04/01/2025 2:57 PM CDT) WBC, ur 0-5 0 - 5 /HPF Comment:Testing performed by : [facility], [address] [place] [address], [address] RBC, ur 3-5(A) 0 - 2 /HPF MEET INTERIANO (TIFFANI) Comment:Testing performed by : [facility], [address] [place] [address], [address] Epithelial cells, squamous, ur 1-5 0 - 5 /HPF MEET INTERIANO (TIFFANI) Comment:Testing performed by : [facility], [address] [place] [address], [address] Mucous, ur Present(A) MEET Mcmullen (TIFFANI) Comment:Testing performed by : [facility], [address] [place] [address], [address] Hyaline casts, ur 1-5 0 - 10 /LPF MEET INTERIANO (TIFFANI) Comment:Testing performed by : [facility], [address] [place] [address], [address] Culture Reflex Comment Reflex conditions for urine culture (WBC >10) not met. MEET INTERIANO (TIFFANI) Comment:Testing performed by : [facility], [address] [place] [address], [address] Urine, clean voided 04/01/2025 2:57 PM CDT 04/01/2025 7:34 PM CDT us Jose Leon MD LAB URINE ORDERABLES Swapna l Result Performing Organization Address [facility]/ZIP Co de Phone Number MEET INTERIANO (TIFFANI) [address] [facility] Department [place] [address] * Dexa Axial Skeleton Bone Density 1 Or 2 Site (12/10/2022 2:14 PM CDT) Anatomical Region Laterality Modality Body N/A Other 12/10/2022 9:48 PM CDT Narrative 12/10/2022 9:49 PM CDT EXAM DESCRIPTION: DEXA AXIAL SKELETON BONE DENSITY 1 OR MORE SITES REASON FOR STUDY: 82 y/o year old F with given history of screening. Postmenopausal Drill Runner/Model: Streyner SL (S/N [id number]) CLINICAL INFORMATION: Current height: 61 inches Maximum height: 62 inches Weight: 124 pounds Risk factors: Postmenopausal, rheumatoid arthritis COMPARISON: 09/22/2020 FINDINGS: AP LUMBAR SPINE L1-L4: Total BMD is 1.113 g/cm2 T-score is 0.6 Dissimilar scan types or analysis methods precludes assessment for calculating a significant change. LEFT HIP: Total BMD is 0.613 g/cm2 T-score is -2.7 Dissimilar scan types or analysis methods precludes assessment for calculating a significant change. Femoral neck BMD is 0.356 g/cm2 T-score is -4 point FRAX: FRAX not reported due to T-scores of hip, femoral neck and/or spine being at or below -2.5 (Osteoporosis). IMPRESSION: Osteoporosis. REFERENCE: Bone mineral density: Normal (T-score above or = -1.0) Low bone mass (T-score between -1.0 and -2.5) replaces the previously used term osteopenia Osteoporosis (T-score = or below -2.5) Medical evaluation for secondary causes of low bone mineral density may be appropriate. FRAX is a World Health Organization validated fracture risk assessment tool that calculates a person's 10 year probability of a major osteoporosis related fracture and hip fracture. According to the National Osteoporosis Foundation guidelines, postmenopausal women and men age 50 or older with low bone mass and a 10 year probability of a major osteoporosis related fracture = or greater than 20% or a 10 year probability of a hip fracture = or greater than 3% should be considered for treatment. For further information, including treatment recommendations, please refer to the 2013 ISCD Official Positions (http://www.iscd.org) and the NOF's Clinician's Guide to Prevention and Treatment of Osteoporosis (http://www.nof.org/professionals/clinical-guidelines) THIS IS AN ELECTRONICALLY VERIFIED FINAL REPORT 12/10/2022 9:49 PM - Electronically signed by Adam Clarke M.D. MF: RICH Report ID: [id number] Reading Location: [place] [address] Procedure Note Adam Clarke MD - 12/10/2022 EXAM DESCRIPTION: DEXA AXIAL SKELETON BONE DENSITY 1 OR MORE SITES REASON FOR STUDY: 82 y/o year old F with given history of screening. Postmenopausal Drill Runner/Model: Streyner SL (S/N [id number]) CLINICAL INFORMATION: Current height: 61 inches Maximum height: 62 inches Weight: 124 pounds Risk factors: Postmenopausal, rheumatoid arthritis COMPARISON: 09/22/2020 FINDINGS: AP LUMBAR SPINE L1-L4: Total BMD is 1.113 g/cm2 T-score is 0.6 Dissimilar scan types or analysis methods precludes assessment for calculating a significant change. LEFT HIP: Total BMD is 0.613 g/cm2 T-score is -2.7 Dissimilar scan types or analysis methods precludes assessment for calculating a significant change. Femoral neck BMD is 0.356 g/cm2 T-score is -4 point FRAX: FRAX not reported due to T-scores of hip, femoral neck and/or spine beingat or below -2.5 (Osteoporosis). IMPRESSION: Osteoporosis. REFERENCE: Bone mineral density: Normal (T-score above or = -1.0) Low bone mass (T-score between -1.0 and -2.5) replaces thepreviously used term osteopenia Osteoporosis (T-score = or below -2.5) Medical evaluation for secondary causes of low bone mineral density may be appropriate. FRAX is a World Health Organization validated fracture risk assessmenttool that calculates a person's 10 year probability of a major osteoporosisrelated fracture and hip fracture. According to the National OsteoporosisFoundation guidelines, postmenopausal women and men age 50 or older with low bonemass and a 10 year probability of a major osteoporosis related fracture = or greater than 20% or a 10 year probability of a hip fracture = or greaterthan 3% should be considered for treatment. For further information, including treatment recommendations, please referto the 2013 ISCD Official Positions (http://www.iscd.org) and the NOF's Clinician's Guide to Prevention and Treatment of Osteoporosis (http://www.nof.org/professionals/clinical-guidelines) THIS IS AN ELECTRONICALLY VERIFIED FINAL REPORT 12/10/2022 9:49 PM - Electronically signed by Adam Clarke M.D. MF: RICH Report ID: [id number] Reading Location: [place] [address] Jose Leon MD IMG DXA PROCEDURES Final Result from Last 3 Months or Most Recently Relevant to Health Maintenance Insurance Member Subscriber Plan / Payer (Ef fective 2022-Present) Name:Yessica Malcolm Relation to Subscriber:Self Name:Yessica Malcolm Payer ID:[id number] (NAIC) Type:[facility] [employer] Address: [place] [id number] [place] [id number] UHC MEDICARE ADVANTAGE Advance Directives For more information, please contact: [phone] Documents on File Type Date Recorded Patient Truss Maker Expl anation ADVANCE DIRECTIVE 11/03/2023 5:22 PM POWER OF VENTILATED RIB FITTER-MEDICAL * Full Code (Latest Code Status on File) Date Activated Date Inactivated Comments 09/30/2024 4:50 PM 09/30/2024 10:18 PM * Full Code Date Activated Date Inactivated Comments 10/21/2023 1:28 AM 10/29/2023 12:03 AM * Full Code Date Activated Date Inactivated Comments 09/25/2023 9:37 AM 10/01/2023 9:48 PM * Full Code Date Activated Date Inactivated Comments 07/19/2023 8:12 PM 07/29/2023 6:27 PM * Full Code Date Activated Date Inactivated Comments 06/27/2022 10:49 PM 06/28/2022 2:27 PM Healthcare Agents on File Name Relationship Healthcare Agent Relationshi p Communication Vinnie Tejeda Health Care Agent Care Teams Freight Unloader Relationship Specialty Start Date End Date Jose Leon MD [facility] [place] [address] PCP - General Family Medicine 09/05/20 Vik Rudd MD Consulting Physician Cardiovascular Disease 07/08/18 Richard Perla DO Cardiovascular Disease 07/08/18 Valery Reina, PT Physical Therapist Physical Therapy 04/25/22 Atilio Gaytan MD Consulting Physician Infectious Diseases 07/25/23
--- OUTSIDE RECORDS SUMMARY | 2025-06-25 15:48 | XMS_ITS | Encounter Summary ---
Author Organization [facility] Healthcare Address [address] [place] [address] Care Team Providers Care Cryptologic Technician Name Role Phone Vik Rudd MD Unavailable [phone] Richard Perla DO Unavailable [phone] Jose Leon MD Primary Care Provider [phone] Valery Reina PT Unavailable Unavailable Atilio Gaytan MD Unavailable + [phone] Reason for Visit * Reason Onset Date Comments Chest Wall Pain 06/25/2025 Encounter Details Date Type Department Care Team (Late st Contact Info) Description 06/25/2025 Nurse Triage [facility] [address] [address] Jose Leon MD [address] [place] [address] Social History Tobacco Use Types Packs/Day Years [...] materials from doctor or pharmacy Never 12/02/2024 [facility] Utilities Answer Date Recorded In the past 12 months has e [employer], [employer], or water [email or web address] threatened to shut off services in your [...] often do you attend chur ch or sikh services? Never 06/07/2024 Do you belong to any clubs o r organizations such as gnosticism groups, unions, fraternal or athletic groups, or [...] staff should administer the PHQ-9) 2 05/19/2025 [facility] - Occupational Stress Questionnaire Answer Date Recorded [...] place to sleep or slept in a group home (including now)? No 10/21/2023 Housing Stability Vital Sign Answer Shashi e Recorded In the last 12 months, was t here a time when you were not able to pay the mortgage or rent on time? No 06/07/2024 In the past 12 months, how m any times have you moved where you were living? 0 06/07/2024 At any time in the past 12 m ont, were you homeless or living in a group home (including now)? No 06/07/2024 Personal Safety Answer Date Recorded Have you ever been in or are you currently in a harmful physical or emotional relationship or is someone making you feel afraid or unsafe? Denies 02/22/2025 Comments No Sex and Gender Information Value Date Recorded Sex Assigned at Not on file Legal Sex Female 7:27 PM SOURCE INSPECTOR Gender Identity Not on file Sexual Orientation Not on file documented as of this encounter Miscellaneous Notes * Telephone Encounter - Ro Del Toro RN - 06/25/2025 1:58 PM SOURCE INSPECTOR Reason for Conversation Chest Wall Pain Background Patient reports she is having right and left sided rib pain. Symptoms first began about 6 days ago after falling against a tall jewelry cabinet. Pain is not constand but it comes and goes with different positions. Patient feels sharp pain in ribs on inhalation. Patient has no visible bruising or swelling. Disposition Go to ED Now (or PCP Triage) Patient agreed to be seen for x-ray. Reason for Disposition Taking a deep breath makes pain worse No Initial Assessment on file. No Additional Information on file. Protocols Used Chest [id number] CE INSPECTOR * Telephone Encounter - Ro Del Toro RN - 06/25/2025 1:46 PM SOURCE INSPECTOR Regarding: Pt in severe rib pain ----- Message from Miriam Barreto sent at 06/25/2025 1:44 PM SOURCE INSPECTOR ----- Chief concern:Pt in severe rib pain Duration: 5 days Callback #: [phone] Additional Information: Pt fell into her jewelry box and hit her ribs on the right side. Pain has progressed to the left side of body. Pt is in severe pain but there is no shortness of breath and no bruising. CE INSPECTOR documented in this encounter Plan of Treatment Not on file documented as of this encounter Goals Goal Patient Goal Type Associated Problems Recent Progress Patient-Stated? Author JIGAR General Goal - Patient schedules and keeps appointments with all recommended providers ACO Care Management On track(07/08 11:06 AM SOURCE INSPECTOR) No Monique Grande RN Note: Problem: Potential [...] ACO Care Management On track(07/08 11:06 AM SOURCE INSPECTOR) No Monique Casiano, WANDA Note: Problem: At Risk for Self Care [...] on filedocumented in this encounter Care Teams Cryptologic Technician Relationship Specialty Start Date End [place] [address] PCP - General Family Medicine 09/05/20 Vik Rudd MD Consulting Physician Cardiovascular Disease 07/08/18 Richard Perla DO Cardiovascular Disease 07/08/18 Valery Reina, PT Physical Therapist Physical Therapy 04/25/22 Atilio Gaytan MD Consulting Physician Infectious Diseases 07/25/23 documented as of this encounter
[2025-06-25 15:53] VITALS: BP 130/74; PULSE 59; RESP 20; TEMP 36.8; O2SAT 96
--- NOTE | 2025-06-25 16:04 | ED.FALL ---
HPI - Fall General Chief Complaint: Fall Stated Complaint: Fall Injury/Pain Right and Left Side Time Seen by Provider: 06/25/25 16:00 Source: patient, RN notes reviewed, old records reviewed and other (accompanied by neighbor) Mode of arrival: wheelchair (placed in on arrival) Limitations: no limitations History of Present Illness HPI Narrative: 84 year old female who presents to express care with complaints of falling about 5 days up against her.upright Jewelry box. Patient reports that she feel against the jewelry box on right rib area and continues to have pain to the area with palpable tenderness noted, reports also has some pain on the left rib area also.Patient reports that pain increases with movement has been taking Tylenol and Ibuprofen for her pain. Patient reports that she called her doctor and was told she needed an xray. MD complaint: fall Onset (ago): day(s) (5 days ago) Fall from: standing Fall witnessed: no Place fall occurred: home Loss of consciousness: none Location of injury: chest (right and left rib pain) Severity scale (1-10): 7 Quality: aching and other (soreness increases with movment) Related Data Home Medications ?Medication ?Instructions ?Recorded ?Confirmed ?Last Taken ?Type famotidine 20 mg tablet 20 mg PO BID 04/08/21 11/07/23 Unknown History lidocaine 5 % topical patch 2 patch topical DAILY 10/01/23 11/07/23 Unknown History (Lidoderm) apixaban 5 mg tablet 10 mg PO BID 10/28/23 10/28/23 10/28/23 09:30 History lisinopril 5 mg tablet 20 mg PO DAILY 10/28/23 11/07/23 Unknown History polyethylene glycol 3350 17 gram 17 g PO DAILY PRN Constipation 10/28/23 10/28/23 Unknown History oral powder packet (Miralax) Allergies Allergy/AdvReac Type Severity Reaction Status Date / Time atorvastatin Allergy Muscle Pain Verified 06/25/25 15:54 gabapentin Allergy Unknown Verified 06/25/25 15:54 pravastatin Allergy Muscle Pain Verified 06/25/25 15:54 prednisone Allergy Dizziness Verified 06/25/25 15:54 simvastatin Allergy Muscle Pain Verified 06/25/25 15:54 Review of Systems Review of Systems: CONSTITUTIONAL: Denies fever, chills, or sweats. EYES: Denies visual changes, redness, or discharge. ENT: Denies rhinorrhea, congestion, sore throat, or otalgia. CARDIOVASCULAR: Denies chest pain, palpitations, or edema. RESPIRATORY: Denies any acute cough or dyspnea. GASTROINTESTINAL: Denies abdominal pain, nausea, vomiting, or diarrhea. GENITOURINARY: Denies dysuria or hematuria. SKIN: Denies rash or itching. MUSCULOSKELETAL: Denies back pain, joint pain, or myalgia.reports bilateral rib pain especially to right side where she fell against large upright jewelry box NEUROLOGIC: Denies headache, numbness, or weakness. PSYCHIATRIC: Reports history of anxiety or depression. 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 Closed fracture of left ulna Hypothyroidism Hypertension Atrial fibrillation Surgical History Surgical History History of left knee replacement History of right knee joint replacement Family History Family History Mother Family history non-contributory Cerebrovascular accident Sibling Cancer Brain aneurysm Father Heart attack Social History Social History Smoking status: Never smoker Alcohol intake: former Substance use: never Substance use type: does not use Do You Feel Safe in your Home?: Yes Lack of Transportation: YES Lack of Food: Never True Current Housing: I Do Not Have Housing Concerned About Future Housing: No Difficulty Paying Gas/Electric Bills: No Difficulty Paying for Meds: No Currently Unemployed: No Education: High School Diploma/GED Difficulty w/ Childcare or Family Care: No Living arrangements: alone Occupation/Education: retired Gender identity (if verbalized by the patient): Female Spiritual care concerns: No Comments At time of signature, agree with nursing past medical, surgical, social and family history. There is no relevant family history pertinent to the presenting complaint Exam Narrative: GENERAL: Elderly-appearing, frail, well-nourished, and in some acute distress. HEAD: Normocephalic, atraumatic. EYES: PERRLA and EOMI. ENT: Nares clear, no rhinorrhea or epistaxis. Mucous membranes moist.TM's with brisk light reflex, throat pink no swelling NECK: Supple no lymphadenopathy CHEST: Clear to auscultation. No respiratory distress.reports pain to bilateral rib areas with right worse from fall increased pain with movement voiced, SAO2 96% on room air HEART: slight irregular rate and rhythm. No murmur heard. Normal peripheral pulses. ABDOMEN: Soft, nontender, nondistended, normal active bowel sounds. EXTREMITIES: Normal range of motion. No edema. SKIN: Warm, dry, no rash. NEURO: No focal deficits. Alert and oriented x3.MECHOOPDA Course Course Emergency Course: Patient is aware of diagnosis, understands and agrees to treatment plan.? Anticipatory guidance given.? Patient agrees to follow-up as directed and is aware of reasons to seek care at the emergency department. Portions of this record may have been created with voice recognition software Level of Care: Express Care Visit Vital Signs Vital signs: Vital Signs Temperature 36.8 C 06/25/25 15:53 Pulse Rate 59 L 06/25/25 15:53 Respiratory Rate 20 06/25/25 15:53 Blood Pressure 130/74 06/25/25 15:53 Pulse Oximetry 96 06/25/25 15:53 Oxygen Delivery Room Air 06/25/25 15:53 Temperature 36.8 C 06/25/25 15:53 Pulse Rate 59 L 06/25/25 15:53 Respiratory Rate 20 06/25/25 15:53 Blood Pressure 130/74 06/25/25 15:53 Pulse Oximetry 96 06/25/25 15:53 Oxygen Delivery Room Air 06/25/25 15:53 Reviewed MDM - Fall Differential Diagnosis Differential diagnosis: Likely other (contusion to ribs, fracture to ribs, pain to right and left lateral chest from fall) Medical Records Attestation: I reviewed the patient's medical records. Imaging Data Attestation: I personally reviewed and interpreted this imaging study as follows: My impression: no acute fracture or malalignment Radiologist's impression: [facility] [address] [place] [address] XRay Report Signed Patient: Yessica Malcolm : 1940 MR#: [id number] Age: 84 Acct:[id number] Loc: EXPBE ADM Date: 06/25/[address]: Ordering Physician: Stefani Bean APRN Date of Service: 06/25/25 Procedure(s): XR ribs BI w PA/LAT CXR Accession Number(s): [id number] cc: Edward, Jose BURRIS; Stefani Bean APRN~ EXAMINATION: XR ribs BI 3V w CXR 2V, 06/25/2025 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 Findings: No acute fracture or malalignment. No significant degenerative changes. Soft tissues unremarkable. Impression: No acute fracture or malalignment. Reviewed, dictated and finalized at location P. SHING WHEEL SETTER Please be advised this is a medical document. It is intended for bryg-eu-moyw communication. It is written in medical language and may contain unfamiliar abbreviations or verbiage. Medical documents are intended to carry relevant information, facts as evident, and the clinical opinion of the practitioner at the time of the encounter. This report may have been done utilizing a voice recognition system. Attempts have been made to correct errors. However, there may be uncorrected grammatical, spelling, and recognition errors present. The file time of this note does not necessarily represent the time of service. Dictated By: Yimi Jaramillo MD 06/25/25 1637 Signed By: <Electronically signed by Yimi Jaramillo MD in OV> Critical Care Time Critical Care Time Critical Care Time: No Discharge Plan Discharge Clinical Impression: Contusion of rib on right side Qualifiers: Encounter type: initial encounter Qualified Code(s): S29.8XXA - Other specified injuries of thorax, initial encounter Patient Disposition: Home Condition: Stable Instructions: Antibiotic Form, Rib Contusion (ED) Additional Instructions: Tylenol for pain cough and deep breath every 2 hours to expand lungs Follow-up with PCP if further problems or concerns Ice to the area 20-30 minutes 4-6 times a day Elevate above heart If your symptoms persist, change or worsen significantly before you can contact your personal physician then please, without delay, go to the emergency department for further evaluation. Follow-up with PCP in 7-10 days or sooner if needed Follow up with PCP soon in regards to your blood pressure which is elevated above threshold for referral. Blood pressure above 120/80 may indicate pre-hypertension.130/74 Patient Language: Eritrean Prescriptions: No Action famotidine 20 mg tablet 20 mg PO BID lidocaine [Lidoderm] 5 % Adhesive Patch,Medicated 2 patch TOPICAL DAILY Rx Instructions: leave on most painful area for up to 12 hrs apixaban 5 mg Tablet 10 mg PO BID Rx Instructions: 10 mg total by mouth 2 times a day for 3 days polyethylene glycol 3350 [Miralax] 17 gram Powder In Packet 17 g PO DAILY PRN (Reason: Constipation) lisinopril 5 mg tablet 20 mg PO DAILY multivitamin with folic acid [Thera] 400 mcg Tablet 1 tablet PO DAILY 30 Days Qty: 30 0RF melatonin 3 mg Tablet 6 mg PO HS 30 Days Qty: 60 0RF hydralazine 25 mg Tablet 12.5 mg PO BID 60 Days Qty: 60 0RF Artificial Tears([id number]) 1-0.2-0.2 % Drops 1 drp EACH EYE QID PRN (Reason: Dry Eye(S)) Qty: 15 0RF acetaminophen 325 mg Tablet 650 mg PO Q6H PRN (Reason: Pain 1-6) Qty: 30 0RF Eliquis 5 mg Tablet 5 mg PO BID Qty: 60 0RF diltiazem HCl 120 mg Capsule,Extended Release 24 Hr 240 mg PO DAILY 30 Days Qty: 60 0RF ezetimibe [Zetia] 10 mg Tablet 10 mg PO DAILY 30 Days Qty: 30 0RF Follow-up/Referrals: Edward,MD Jose [Primary Care Provider, Unknown] Time of Disposition: 16:47 Quality Rubén Coma Scale Eyes: Open Verbal: Oriented and Alert Motor: Follows Commands [place] Coma Total Score: 15
== END 2025-06-25 16:55 | disposition home or self-care (01) ==
PROVIDERS: Emergency Provider Registered Nurse; PCP Hospitalist
DX: S20.211A Contusion of right front wall of thorax, initial encounter (principal); W19.XXXA Unspecified fall, initial encounter; I10 Essential (primary) hypertension; I48.91 Unspecified atrial fibrillation; E03.9 Hypothyroidism, unspecified; M17.12 Unilateral primary osteoarthritis, left knee; Z96.653 Presence of artificial knee joint, bilateral
CPT/HCPCS: 71046; 71110; 99213; G0463